=== PATIENT | female | born 1955 | race African-American/Black ===

== ENCOUNTER 2017-01-26 07:57 | Emergency (ER) | payer MEDICARE, MEDICAID ==
[2017-01-26] MEDS ORDERED: ONDANSETRON HCL INJ/PF 4 MG/2 ML SDV IV ONE (09:25)
--- NOTE | 2017-01-26 09:28 | ER Document Report ---
ED Medical Screen (RME) - General Chief Complaint: Abdominal Pain Stated Complaint: VOMITING/DIZZY Mode of Arrival: Ambulatory Information source: Patient Notes: This is a 61-year-old -[place] female with a history of diabetes who presents with a 2 day history of upper abdominal pain nausea and vomiting. She states she has not been tolerating PO. Last attempt at oral intake was last night. She has not had a bowel movement in several days. Previous abdominal surgeries include cholecystectomy. She denies any fevers or chills. Primary care physician is Dr. Swan TRAVEL OUTSIDE OF THE [place] IN LAST 30 DAYS: No - Related Data Allergies/Adverse Reactions: No Known Allergies Allergy (Unverified 06/18/11 08:55) Past Medical History - General Information source: Patient Endocrine Medical History: Reports: Hx Diabetes Mellitus Type 2, Hx Hypothyroidism Renal/ Medical History: Denies: Hx Peritoneal Dialysis GI Medical History: Reports: Hx Hiatal Hernia Past Surgical History: Reports: Hx Cholecystectomy Physical Exam - Vital signs Vitals: Temp Pulse Resp BP Pulse Ox 97.7 F 91 22 H 153/65 H 97 01/26/17 07:59 01/26/17 07:59 01/26/17 07:59 01/26/17 07:59 01/26/17 07:59 Course - Vital Signs Vital signs: Temp Pulse Resp BP Pulse Ox 97.7 F 91 22 H 153/65 H 97 01/26/17 07:59 01/26/17 07:59 01/26/17 07:59 01/26/17 07:59 01/26/17 07:59
[2017-01-26 10:00] LABS: ABSOLUTE LYMPHOCYTES (AUTO) 1.3 10^3/uL (0.5-4.7); ABSOLUTE MONOCYTES (AUTO) 0.4 10^3/uL (0.1-1.4); ABSOLUTE NEUT (AUTO) 9.1 10^3/uL (1.7-8.2); BASOPHILS % (AUTO) 0.4 % (0-2); EOSINOPHILS % (AUTO) 0.2 % (0-6); HEMATOCRIT 36.9 % (36.0-47.0); HGB HCT DIFFERENCE -0.9; LYMPHOCYTES % (AUTO) 12.2 % (13-45); MEAN CORPUSCULAR HEMOGLOBIN 27.4 pg (27.0-33.4); MEAN CORPUSCULAR HGB CONC 32.5 g/dL (32.0-36.0); MEAN CORPUSCULAR VOLUME 84 fl (80-97); MONOCYTES % (AUTO) 4.1 % (3-13); RED BLOOD COUNT 4.37 10^6/uL (3.72-5.28); RED CELL DISTRIBUTION WIDTH 15.4 % (11.5-14.0); SEGMENTED NEUTROPHILS % (AUTO) 83.1 % (42-78)
[2017-01-26 10:15] LABS: ALANINE AMINOTRANSFERASE 29 U/L (9-52); ALBUMIN 3.6 g/dL (3.5-5.0); ALKALINE PHOSPHATASE 169 U/L (38-126); ANION GAP 10 (5-19); ASPARTATE AMINO TRANSFERASE 22 U/L (14-36); BILIRUBIN,DIRECT 0.4 mg/dL (0.0-0.4); BILIRUBIN,TOTAL 0.6 mg/dL (0.2-1.3); BLOOD UREA NITROGEN 8 mg/dL (7-20); CALCIUM 9.9 mg/dL (8.4-10.2); CARBON DIOXIDE 29 mmol/L (22-30); CHLORIDE 102 mmol/L (98-107); GLUCOSE 116 mg/dL (75-110); LIPASE 53.5 U/L (23-300); POTASSIUM 4.8 mmol/L (3.6-5.0); SODIUM 141.4 mmol/L (137-145)
--- NOTE | 2017-01-26 10:37 | ER Document Report ---
ED GI/ - General Chief Complaint: Abdominal Pain Stated Complaint: VOMITING/DIZZY Mode of Arrival: Ambulatory Information source: Patient Notes: 61-year-old female with past medical history as recorded who presents today stating the onset yesterday of some epigastric nonradiating abdominal "pain". She denies any aggravating or relieving factors. She denies any radiation. She states vomiting without diarrhea, dysuria, or fevers. She denies any chest pain or radiation to the chest. Patient states she does have a "very long history" of an epigastric "hernia" but has never been surgically evaluated or operated upon. TRAVEL OUTSIDE OF THE [place] IN LAST 30 DAYS: No - HPI Patient complains to provider of: Abdominal pain Onset: Other - See above Timing/Duration: Gradual Quality of pain: Other - See above Severity at maximum: Mild Severity in ED: Almost gone Pain Level: 1 Context: Other - See above Location: Other - See above Vaginal bleeding (Compared to normal period): None Sexual history: Inactive Associated symptoms: Other - See above Exacerbated by: Denies Relieved by: Denies Similar symptoms previously: Yes Recently seen / treated by doctor: No - Related Data Allergies/Adverse Reactions: No Known Allergies Allergy (Unverified 06/18/11 08:55) Past Medical History - General Information source: Patient - Social History Smoking Status: Unknown if Ever Smoked Chew tobacco use (# tins/day): No Smoking Education Provided: No Frequency of alcohol use: None Family History: Reviewed & Not Pertinent Endocrine Medical History: Reports: Hx Diabetes Mellitus Type 2, Hx Hypothyroidism Renal/ Medical History: Denies: Hx Peritoneal Dialysis GI Medical History: Reports: Hx Hiatal Hernia Past Surgical History: Reports: Hx Cholecystectomy Review of Systems - Review of Systems Constitutional: denies: Fever EENT: denies: Eye discharge, Nose discharge Respiratory: denies: Short of breath Gastrointestinal: Vomiting Genitourinary: denies: Dysuria Musculoskeletal: denies: Leg swelling Skin: Other - no hives. denies: Rash Neurological/Psychological: Other - no slurred speech -: Yes All other systems reviewed and negative Physical Exam - Vital signs Vitals: Temp Pulse Resp BP Pulse Ox 97.7 F 91 22 H 153/65 H 97 01/26/17 07:59 01/26/17 07:59 01/26/17 07:59 01/26/17 07:59 04/26/17 07:59 Notes: Reviewed vital signs and nursing note as charted by RN. CONSTITUTIONAL: Alert and oriented and responds appropriately to questions. Well -appearing; well-nourished HEAD: Normocephalic; atraumatic EYES: Sclerae non-icteric CARD: Regular rate and rhythm; no murmurs, no clicks, no rubs, no gallops; symmetric distal pulses RESP: Normal chest excursion without splinting or tachypnea; breath sounds clear and equal bilaterally; no wheezes, no rhonchi, no rales ABD/GI: Normal bowel sounds; related BMI; nontender to deep palpation in all 4 quadrants of the abdomen. Patient has some pendulous breasts with a yeast infection-type rash underneath each breast. BACK: The back appears normal and is non-tender to palpation, there is no CVA tenderness EXT: Normal ROM in all joints; non-tender to palpation; no cyanosis, no effusions, no edema SKIN: Normal color for age and race; warm; dry; good turgor; capillary refill < 2 seconds; no acute lesions noted NEURO: Moves all extremities equally; Motor and sensory function intact PSYCH: The patient's mood and manner are appropriate. Grooming and personal hygiene are appropriate. Course - Re-evaluation Re-evalutation: 01/26/17 10:37 Given the history and physical examination we will order an EKG, basic labs, abdominal labs, and order a CT scan of the abdomen and pelvis and reassess the patient's abdomen. Patient denies any abdominal pain at this time. Patient's abdomen is distended consistent with BMI but is nontender currently. EKG shows a heart rate of 81, normal sinus rhythm, normal axis, no obvious ST elevation or depression. Poor R wave progression. 01/26/17 11:59 Exam a change. Patient just returning from CT scan. Laboratory values as recorded. Normal liver panel and lipase. 01/26/17 13:10 CT scan as recorded. Ultrasound for this right lower quadrant 6 cm mass has been ordered. 01/26/17 15:35 Ultrasound of the pelvis as recorded. Patient's pain is mostly in the midepigastric region. EKG as recorded. Troponin as recorded. Patient has eaten and drank without difficulty or pain. I have referred the patient to OB/ [facility] for further evaluation of her adnexal mass. I will start the patient on a PPI. - Vital Signs Vital signs: Temp Pulse Resp BP Pulse Ox 97.7 F 91 22 H 153/65 H 97 01/26/17 07:59 01/26/17 07:59 01/26/17 07:59 01/26/17 07:59 01/26/17 07:59 - Laboratory Result Diagrams: 01/26/17 09:40 01/26/17 09:40 Laboratory results interpreted by me: 01/26/17 01/26/17 01/26/17 09:40 09:40 09:40 WBC 11.0 H RDW 15.4 H Seg Neutrophils % 83.1 H Lymphocytes % 12.2 L Absolute Neutrophils 9.1 H Glucose 116 H POC Glucose 111 H Alkaline Phosphatase 169 H Urine Blood 01/26/17 09:40 WBC RDW Seg Neutrophils % Lymphocytes % Absolute Neutrophils Glucose POC Glucose Alkaline Phosphatase Urine Blood SMALL H Discharge - Discharge Clinical Impression: Epigastric abdominal pain, Right lower quadrant abdominal mass Condition: Good Disposition: HOME, SELF-CARE Additional Instructions: Please come back immediately with any return of pain, change in location or quality of pain, fevers or vomiting, or any other acute problems. Please make sure that you follow-up with [facility] as we have discussed about to right lower quadrant abdominal mass. You may also start to take some Prilosec over-the- counter for the epigastric discomfort. Please follow-up with your primary care doctor regarding this. Referrals: HAIM HARPER MD [Primary Care Provider] - Follow up as needed ELMIRA POLANCO MD [ACTIVE STAFF] - Follow up as needed
[2017-01-26 10:48] LABS: APPEARANCE,URINE CLEAR; BILIRUBIN,URINE NEGATIVE (NEGATIVE); GLUCOSE, URINE NEGATIVE (NEGATIVE); KETONES,URINE NEGATIVE (NEGATIVE); LEUKOCYTE ESTERASE,URINE NEGATIVE (NEGATIVE); NITRITE,URINE NEGATIVE (NEGATIVE); PROTEIN,URINE NEGATIVE (NEGATIVE); URINE SPECIFIC GRAVITY 1.004; UROBILINOGEN,URINE NEGATIVE mg/dL (<2.0)
[2017-01-26 16:31] VITALS: BP 132/86
--- NOTE | 2017-01-26 21:16 | EKG REPORT ---
SEVERITY:- ABNORMAL ECG - SINUS RHYTHM PROBABLE INFERIOR INFARCT, AGE INDETERMINATE : Confirmed by: Guy Shore 26-Jan-2017 21:14:49
== END 2017-01-26 16:30 | disposition home or self-care (01) ==
LOC: ER 07:57
DX: R10.13 Epigastric pain (principal); R19.03 Right lower quadrant abdominal swelling, mass and lump; R42 Dizziness and giddiness; E11.9 Type 2 diabetes mellitus without complications; E03.9 Hypothyroidism, unspecified; Z90.49 Acquired absence of other specified parts of digestive tract
CPT/HCPCS: 93005; 99284; 36415; 82962; 83690; 85025; 80053; 81001; 84484; 76857; 93976; 74177; 93010; J2405

== ENCOUNTER 2017-11-24 14:48 | Inpatient (IN) | payer MEDICARE, MEDICAID ==
[2017-11-24 16:50] LABS: HEMATOCRIT 33.2 % (36.0-47.0); HEMOGLOBIN 10.9 g/dL (12.0-15.5); MEAN CORPUSCULAR HEMOGLOBIN 27.6 pg (27.0-33.4); MEAN CORPUSCULAR VOLUME 84 fl (80-97); PLATELET COUNT 358 10^3/uL (150-450); RED BLOOD COUNT 3.97 10^6/uL (3.72-5.28); RED CELL DISTRIBUTION WIDTH 15.3 % (11.5-14.0); WHITE BLOOD COUNT 10.9 10^3/uL (4.0-10.5)
[2017-11-24 17:16] LABS: ANION GAP 9 (5-19); BLOOD UREA NITROGEN 4 mg/dL (7-20); CALCIUM 9.8 mg/dL (8.4-10.2); CARBON DIOXIDE 29 mmol/L (22-30); CHLORIDE 101 mmol/L (98-107); GLUCOSE 128 mg/dL (75-110); SODIUM 138.8 mmol/L (137-145)
[2017-11-24] MEDS ORDERED: NORMAL SALINE 1000 ML 1,000 ML IV ONE (18:49)
[2017-11-24] MEDS ORDERED: NORMAL SALINE 1000 ML 1,000 ML IV PRN (18:49)
--- NOTE | 2017-11-24 18:49 | PDOC CONSULTATION ---
Consultation Consult Date: 11/24/17 Consult reason:: multiple abscesses History of Present Illness Admission Date/PCP: 11/24/17 14:48 History of Present Illness: MCKENZIE SZYMANSKI is a 62 year old female obese, with diabetes admitted for multiple abscesses (left breast, left inner thigh, and right axilla). She denies any other medical issues. Past Medical History Medical History: Other - obesity, diabetes Endocrine Medical History: Reports: Diabetes Mellitus Type 2, Hypothyroidism GI Medical History: Reports: Hiatal Hernia Past Surgical History Past Surgical History: Reports: Cholecystectomy Social History Lives with: Alone Smoking Status: Current Every Day Smoker Number of Years Smokin Last Time Smoked: T Frequency of Alcohol Use: Rare Hx Recreational Drug Use: No Drugs: None Hx Prescription Drug Abuse: No Family History Family History: Reviewed & Not Pertinent, Other - diabetes Parental Family History Reviewed: Yes Children Family History Reviewed: Yes Sibling(s) Family History Reviewed.: Yes Medication/Allergy Allergies/Adverse Reactions: No Known Allergies Allergy (Verified 11/24/17 14:33) Physical Exam Vital Signs: Temp Pulse Resp BP Pulse Ox 97.8 F 94 20 142/71 H 100 11/24/17 15:39 11/24/17 15:39 11/24/17 15:39 11/24/17 15:39 11/24/17 15:39 Intake & Output 11/23/17 11/24/17 11/25/17 06:59 06:59 06:59 Weight 145.8 kg General appearance: PRESENT: mild distress Mouth exam: PRESENT: dry mucosa Neck exam: PRESENT: full ROM Respiratory exam: PRESENT: clear to auscultation tawanda Cardiovascular exam: PRESENT: RRR GI/Abdominal exam: PRESENT: soft - large pannus Extremities exam: PRESENT: full ROM Results Laboratory Results: 11/24/17 16:30 11/24/17 16:30 11/24/17 11/24/17 16:30 16:30 WBC 10.9 H RBC 3.97 Hgb 10.9 L Hct 33.2 L MCV 84 MCH 27.6 MCHC 33.0 RDW 15.3 H Plt Count 358 Sodium 138.8 Potassium 4.0 Chloride 101 Carbon Dioxide 29 Anion Gap 9 BUN 4 L Creatinine 0.53 Est GFR ( Amer) > 60 Est GFR (Non-Af Amer) > 60 Glucose 128 H Calcium 9.8 Assessment & Plan - Plan Summary Plan Summary: A/ Morbid obesity Multiple skin abscesses : left breast and inner thigh, right axilla diabetes P/ NPO after midnight consent for I&D abscesses of left breast, left inner thigh, and right axilla Start Zosyn 3.375. gr q6 IVF
[2017-11-24] MEDS ORDERED: DEXTROSE 50%-WATER 25 GM/50 ML DISP.SYRIN IV PRN ×2 (18:51)
[2017-11-24] MEDS ORDERED: GLUCAGON,HUMAN RECOMB 1 MG INJ SUBCUT PRN (18:51)
[2017-11-24] MEDS ORDERED: DEXTROSE 40% GEL 15 GM TUBE PO PRN ×2 (18:51)
[2017-11-24] MEDS ORDERED: PIPERACILLIN/TAZOBACTAM 3.375 GM VIAL IV SCH (21:00)
[2017-11-24] MEDS: PIPERACILLIN SODIUM/TAZOBACTAM 3.375 GM in NORMAL SALINE 100 ML IV SCH (21:01)
--- NOTE | 2017-11-24 21:35 | PDOC H&P ---
History of Present Illness Admission Date/PCP: 11/24/17 14:48 History of Present Illness: 62-year-old morbidly obese female, with impaired fasting blood glucose she came to the office today for evaluation of multiple abscesses involving the left inner thigh, the buttock, the right axilla and the left breast. She was admitted directly from the office to the hospital for evaluation. She is morbidly obese, in the office she was evaluated, she has abscesses involving many body parts Past Medical History Endocrine Medical History: Reports: Hypothyroidism, Obesity GI Medical History: Reports: Hiatal Hernia Past Surgical History Past Surgical History: Reports: Cholecystectomy Social History Lives with: Alone Smoking Status: Current Every Day Smoker Cigarettes Packs Per Day: 1 Number of Years Smokin Last Time Smoked: T Frequency of Alcohol Use: Rare Hx Recreational Drug Use: No Drugs: None Hx Prescription Drug Abuse: No Family History Family History: Reviewed & Not Pertinent, Other - diabetes Parental Family History Reviewed: Yes Children Family History Reviewed: Yes Sibling(s) Family History Reviewed.: Yes Medication/Allergy Home Medications: Mineral Oil/Petrolatum,White [Absorbase Ointment] 1 applic TOP DAILY 11/24/17 Nystatin [Mycostatin Topical Powder 15 gm] 1 applic TOP BID 11/24/17 Allergies/Adverse Reactions: No Known Allergies Allergy (Verified 11/24/17 14:33) Review of Systems Constitutional: ABSENT: chills, fever(s), headache(s), weight gain, weight loss Eyes: ABSENT: visual disturbances Ears: ABSENT: hearing changes Cardiovascular: ABSENT: chest pain, dyspnea on exertion, edema, orthropnea, palpitations Respiratory: ABSENT: cough, hemoptysis Gastrointestinal: ABSENT: abdominal pain, constipation, diarrhea, hematemesis, hematochezia, nausea, vomiting Genitourinary: ABSENT: dysuria, hematuria Musculoskeletal: ABSENT: joint swelling Integumentary: ABSENT: rash, wounds Neurological: ABSENT: abnormal gait, abnormal speech, confusion, dizziness, focal weakness, syncope Psychiatric: ABSENT: anxiety, depression, homidical ideation, suicidal ideation Endocrine: ABSENT: cold intolerance, heat intolerance, menstrual abnormalities, polydipsia, polyuria Hematologic/Lymphatic: ABSENT: easy bleeding, easy bruising, lymphadenopathy Physical Exam Vital Signs: Temp Pulse Resp BP Pulse Ox 97.8 F 94 20 142/71 H 100 11/24/17 15:39 11/24/17 15:39 11/24/17 15:39 11/24/17 15:39 11/24/17 15:39 Intake & Output 11/23/17 11/24/17 11/25/17 06:59 06:59 06:59 Weight 145.8 kg General appearance: PRESENT: morbidly obese Head exam: PRESENT: atraumatic, normocephalic Eye exam: PRESENT: conjunctiva pink, EOMI, PERRLA Ear exam: PRESENT: normal external ear exam Mouth exam: PRESENT: moist, tongue midline Neck exam: PRESENT: full ROM Cardiovascular exam: PRESENT: +S1, +S2 Pulses: PRESENT: normal dorsalis pedis pul, +2 pedal pulses bilateral Vascular exam: PRESENT: normal capillary refill GI/Abdominal exam: PRESENT: normal bowel sounds, soft Rectal exam: PRESENT: deferred Neurological exam: PRESENT: alert, CN II-XII grossly intact Psychiatric exam: PRESENT: appropriate affect, normal mood Skin exam: PRESENT: other - Abscess involving the left thigh, right axilla and left breast Results Laboratory Results: 11/24/17 16:30 11/24/17 16:30 11/24/17 11/24/17 16:30 16:30 WBC 10.9 H RBC 3.97 Hgb 10.9 L Hct 33.2 L MCV 84 MCH 27.6 MCHC 33.0 RDW 15.3 H Plt Count 358 Sodium 138.8 Potassium 4.0 Chloride 101 Carbon Dioxide 29 Anion Gap 9 BUN 4 L Creatinine 0.53 Est GFR ( Amer) > 60 Est GFR (Non-Af Amer) > 60 Glucose 128 H Calcium 9.8 Assessment & Plan - Diagnosis (1) Abscess of multiple sites Is this a current diagnosis for this admission?: Yes Plan: She has abscess in multiple body parts including left inner thigh, right axilla , left breast, start IV antibiotic, obtain consultation from surgery for I&D (2) Morbid obesity Is this a current diagnosis for this admission?: Yes (3) Hidradenitis suppurativa of right axilla Is this a current diagnosis for this admission?: Yes
[2017-11-25] MEDS: PIPERACILLIN SODIUM/TAZOBACTAM 3.375 GM in NORMAL SALINE 100 ML IV SCH ×4 (02:09→21:48)
--- NOTE | 2017-11-25 08:02 | EKG REPORT ---
SEVERITY:- ABNORMAL ECG - SINUS RHYTHM PROBABLE INFERIOR INFARCT, OLD CONSIDER ANTERIOR INFARCT : Confirmed by: Everett Estes MD 25-Nov-2017 08:01:29
[2017-11-25] MEDS ORDERED: ALBUTEROL SULFATE 0.083% NEB 2.5 MG/3 ML AMPUL NEB ONE (09:00)
[2017-11-25] MEDS ORDERED: FENTANYL CITRATE INJ/PF 100 MCG/2 ML AMPUL ONE (13:40)
[2017-11-25] MEDS ORDERED: MIDAZOLAM 2 MG/2 ML INJ ONE (13:41)
[2017-11-25] MEDS ORDERED: EPHEDRINE SULFATE INJ 50 MG/1 ML AMPULE ONE (13:41)
[2017-11-25] MEDS ORDERED: ACETAMINOPHEN 0 ML IV ONE (13:42)
[2017-11-25] MEDS ORDERED: PROPOFOL INJ 200 MG/20 ML VIAL IV ONE (13:42)
[2017-11-25] MEDS ORDERED: HYDROMORPHONE HCL INJ/PF 2 MG/ML AMPULE ONE (13:42)
[2017-11-25] MEDS ORDERED: BUPIVACAINE HCL 0.25 % INJ/PF (2.5 MG/1 ML) 30 ML VIAL ONE (13:44)
[2017-11-25] MEDS ORDERED: LIDOCAINE 0.5% INJ-PF (5 MG/ML) 50 ML SDV ONE (13:44)
[2017-11-25] MEDS ORDERED: DIPHENHYDRAMINE HCL 50 MG/ML VIAL IV PRN (14:19)
[2017-11-25] MEDS ORDERED: ONDANSETRON HCL INJ/PF 4 MG/2 ML SDV IV PRN (14:19)
[2017-11-25] MEDS ORDERED: PROMETHAZINE HCL INJ 25 MG/1 ML VIAL IV PRN (14:19)
--- NOTE | 2017-11-25 14:28 | Operative Report ---
Operative Report DATE OF SURGERY: 11/25/17 PREOPERATIVE DIAGNOSIS: Multiple abscesses right axilla, left breast, left groin POSTOPERATIVE DIAGNOSIS: Hidradenitis suppurativa with abscesses OPERATION: Excisional debridement, irrigation, and packing of multiple abscesses including right axilla, left inframammary breast crease, and left groin SURGEON: KEE NGUYEN ANESTHESIA: LMAC TISSUE REMOVED OR ALTERED: SQ, skin, pus COMPLICATIONS: none ESTIMATED BLOOD LOSS: minimal INTRAOPERATIVE FINDINGS: See below PROCEDURE: Patient was taken to the operating room where LMAC anesthesia was induced. The right axilla, left breast, left groin were exposed. Specifically the left proximal thigh inferior to the groin. All 3 areas had abscesses consistent with hidradenitis suppurativa. All 3 areas were prepped with Betadine Surgical plan and surgical timeout were conducted. All 3 abscesses were anesthetized 1% plain lidocaine. All 3 lesions were excised using a 10 blade. In elliptical fashion removing skin and subcutaneous tissue and pus. The right axillary wound was approximately 3 x 5 cm, and 2 cm deep. Bleeders were cauterized as encountered. This was a manifestation of abscess secondary to hidradenitis suppurativa. Ellipses of skin 2 x 3 cm for the left breast and 2 x 3 cm for the left groin were submitted to pathology. All wounds were irrigated and packed with iodoform packing Similar abscesses were removed from the left inframammary fold, and the left proximal inner thigh. Wounds were irrigated, cultured and packed. Patient tolerated procedure well.
--- NOTE | 2017-11-25 22:16 | PDOC PROGRESS REPORT ---
Subjective Progress Note for:: 11/25/17 Subjective:: She was admitted yesterday she underwent I&D Reason For Visit: GLUTEAL ABSCESS,MORBID OBESITY Physical Exam Vital Signs: Temp Pulse Resp BP Pulse Ox 97.9 F 80 22 H 102/74 93 11/25/17 19:00 11/25/17 19:00 11/25/17 19:00 11/25/17 19:00 11/25/17 19:00 Intake & Output 11/24/17 11/25/17 11/26/17 06:59 06:59 06:59 Intake Total 2650 6870 Output Total 200 225 Balance 2450 6645 Weight 145.8 kg 145.8 kg General appearance: PRESENT: no acute distress Eye exam: PRESENT: PERRLA Respiratory exam: PRESENT: clear to auscultation tawanda Cardiovascular exam: PRESENT: +S1, +S2 GI/Abdominal exam: PRESENT: soft Neurological exam: PRESENT: alert, CN II-XII grossly intact Results Laboratory Results: 11/24/17 16:30 11/24/17 16:30 Assessment & Plan - Diagnosis (1) Abscess of multiple sites Is this a current diagnosis for this admission?: Yes (2) Morbid obesity Is this a current diagnosis for this admission?: Yes (3) Hidradenitis suppurativa of right axilla Is this a current diagnosis for this admission?: Yes - Plan Summary Plan Summary: Continue IV antibiotic
[2017-11-25] MEDS: NORMAL SALINE IV SCH (22:57)
[2017-11-25] MEDS: CLINDAMYCIN PHOSPHATE IV SCH (22:57)
[2017-11-25] MEDS: OXYCODONE-ACETAMINOPHEN 5-325 MG TABLET PO PRN (23:49)
[2017-11-26] MEDS: PIPERACILLIN SODIUM/TAZOBACTAM 3.375 GM in NORMAL SALINE 100 ML IV SCH ×2 (03:12→09:15)
[2017-11-26] MEDS: OXYCODONE-ACETAMINOPHEN 5-325 MG TABLET PO PRN (04:52)
[2017-11-26] MEDS: NORMAL SALINE IV SCH (04:54)
[2017-11-26] MEDS: CLINDAMYCIN PHOSPHATE IV SCH (04:54)
[2017-11-26 09:14] LABS: APPEARANCE,URINE CLOUDY; BILIRUBIN,URINE NEGATIVE (NEGATIVE); COLOR,URINE YELLOW; GLUCOSE, URINE NEGATIVE (NEGATIVE); KETONES,URINE NEGATIVE (NEGATIVE); LEUKOCYTE ESTERASE,URINE LARGE (NEGATIVE); NITRITE,URINE NEGATIVE (NEGATIVE); PROTEIN,URINE 30 mg/dL (NEGATIVE); URINE SPECIFIC GRAVITY 1.006; UROBILINOGEN,URINE NEGATIVE mg/dL (<2.0)
[2017-11-26] MEDS: CLINDAMYCIN 600 MG/D5W RTU 600 MG/50 ML RTUPB IV SCH ×2 (13:34→22:47)
--- NOTE | 2017-11-26 21:15 | PDOC PROGRESS REPORT ---
Subjective Progress Note for:: 11/26/17 Subjective:: She was seen by the bedside, still on IV antibiotic hopefully discharge home in a.m. Reason For Visit: GLUTEAL ABSCESS,MORBID OBESITY Physical Exam Vital Signs: Temp Pulse Resp BP Pulse Ox 98.2 F 102 H 18 158/85 H 91 L 11/26/17 19:22 11/26/17 19:22 11/26/17 19:22 11/26/17 19:22 11/26/17 19:22 Intake & Output 11/25/17 11/26/17 11/27/17 06:59 06:59 06:59 Intake Total 2650 9320 1979 Output Total 200 225 Balance 2450 9095 1979 Weight 145.8 kg 145.8 kg General appearance: PRESENT: morbidly obese Head exam: PRESENT: atraumatic, normocephalic Ear exam: PRESENT: normal external ear exam Mouth exam: PRESENT: moist, tongue midline Neck exam: PRESENT: full ROM Respiratory exam: PRESENT: clear to auscultation tawanda Cardiovascular exam: PRESENT: RRR, +S1, +S2 Vascular exam: PRESENT: normal capillary refill GI/Abdominal exam: PRESENT: normal bowel sounds, soft Rectal exam: PRESENT: deferred Neurological exam: PRESENT: alert Psychiatric exam: PRESENT: appropriate affect, normal mood Skin exam: PRESENT: dry, intact, warm. ABSENT: cyanosis, rash Results Laboratory Results: 11/24/17 16:30 11/24/17 16:30 11/26/17 09:02 Urine Color YELLOW Urine Appearance CLOUDY Urine pH 5.0 Ur Specific [place] 1.006 Urine Protein 30 H Urine Glucose (UA) NEGATIVE Urine Ketones NEGATIVE Urine Blood LARGE H Urine Nitrite NEGATIVE Ur Leukocyte Esterase LARGE H Urine WBC (Auto) 20 Urine RBC (Auto) 9 Assessment & Plan - Diagnosis (1) Abscess of multiple sites Is this a current diagnosis for this admission?: Yes (2) Morbid obesity Is this a current diagnosis for this admission?: Yes (3) Hidradenitis suppurativa of right axilla Is this a current diagnosis for this admission?: Yes
[2017-11-27] MEDS: OXYCODONE-ACETAMINOPHEN 5-325 MG TABLET PO PRN ×2 (04:23→15:24)
[2017-11-27] MEDS: CLINDAMYCIN 600 MG/D5W RTU 600 MG/50 ML RTUPB IV SCH ×3 (05:19→21:09)
--- NOTE | 2017-11-27 14:43 | PDOC PROGRESS REPORT ---
Subjective Progress Note for:: 11/27/17 Subjective:: Seen by the bedside on IV antibiotic Reason For Visit: GLUTEAL ABSCESS,MORBID OBESITY Physical Exam Vital Signs: Temp Pulse Resp BP Pulse Ox 97.7 F 88 20 152/86 H 95 11/27/17 11:16 11/27/17 11:16 11/27/17 11:16 11/27/17 11:16 11/27/17 11:16 Intake & Output 11/26/17 11/27/17 11/28/17 06:59 06:59 06:59 Intake Total 9320 2540 810 Output Total 225 1600 Balance 9095 940 810 Weight 145.8 kg General appearance: PRESENT: no acute distress Eye exam: PRESENT: PERRLA Respiratory exam: PRESENT: clear to auscultation tawanda Cardiovascular exam: PRESENT: +S1, +S2 GI/Abdominal exam: PRESENT: soft Neurological exam: PRESENT: alert Results Laboratory Results: 11/24/17 16:30 11/24/17 16:30 Assessment & Plan - Diagnosis (1) Abscess of multiple sites Is this a current diagnosis for this admission?: Yes (2) Morbid obesity Is this a current diagnosis for this admission?: Yes (3) Hidradenitis suppurativa of right axilla Is this a current diagnosis for this admission?: Yes
[2017-11-28] MEDS: CLINDAMYCIN 600 MG/D5W RTU 600 MG/50 ML RTUPB IV SCH ×3 (05:42→21:44)
[2017-11-28] MEDS: OXYCODONE-ACETAMINOPHEN 5-325 MG TABLET PO PRN (08:18)
--- NOTE | 2017-11-28 21:56 | PDOC PROGRESS REPORT ---
Subjective Progress Note for:: 11/28/17 Subjective:: Patient is alert, she was admitted for the management of multiple skin abscess, on IV antibiotic, will transition to p.o. antibiotic and discharge in 1 or 2 days Reason For Visit: GLUTEAL ABSCESS,MORBID OBESITY Physical Exam Vital Signs: Temp Pulse Resp BP Pulse Ox 97.3 F 81 18 153/64 H 100 11/28/17 11:16 11/28/17 11:16 11/28/17 11:16 11/28/17 11:16 11/28/17 11:16 Intake & Output 11/27/17 11/28/17 11/29/17 06:59 06:59 06:59 Intake Total 2540 1432 981 Output Total 1600 2 Balance 940 1430 981 Weight 142.6 kg General appearance: PRESENT: no acute distress Eye exam: PRESENT: PERRLA Respiratory exam: PRESENT: clear to auscultation tawanda Cardiovascular exam: PRESENT: +S1, +S2 GI/Abdominal exam: PRESENT: soft Neurological exam: PRESENT: alert Results Laboratory Results: 11/24/17 16:30 11/24/17 16:30 11/25/17 14:12 Axilla - Right Gram Stain - Final 11/25/17 14:12 Axilla - Right Wound Culture - Final Corynebacterium Species Peptostreptococcus Species 11/26/17 09:02 Clean Catch Midstream Urine Culture - Final NO GROWTH 2 DAYS Assessment & Plan - Diagnosis (1) Abscess of multiple sites Is this a current diagnosis for this admission?: Yes (2) Morbid obesity Is this a current diagnosis for this admission?: Yes (3) Hidradenitis suppurativa of right axilla Is this a current diagnosis for this admission?: Yes
[2017-11-29] MEDS: CLINDAMYCIN 600 MG/D5W RTU 600 MG/50 ML RTUPB IV SCH ×2 (06:09→16:05)
[2017-11-29] MEDS: OXYCODONE-ACETAMINOPHEN 5-325 MG TABLET PO PRN ×2 (06:09→16:06)
--- NOTE | 2017-11-29 19:38 | PDOC PROGRESS REPORT ---
Subjective Progress Note for:: 11/29/17 Subjective:: Patient is alert, she was admitted for the management of multiple skin abscess, on IV antibiotic, will transition to p.o. antibiotic and discharge in 1 or 2 days Reason For Visit: GLUTEAL ABSCESS,MORBID OBESITY Physical Exam Vital Signs: Temp Pulse Resp BP Pulse Ox 97.4 F 74 20 148/76 H 100 11/29/17 11:50 11/29/17 11:50 11/29/17 11:50 11/29/17 11:50 11/29/17 11:50 Intake & Output 11/28/17 11/29/17 11/30/17 06:59 06:59 06:59 Intake Total 1432 3331 Output Total 2 900 Balance 1430 2431 Weight 142.6 kg General appearance: PRESENT: no acute distress, well-developed, well-nourished Head exam: PRESENT: atraumatic, normocephalic Eye exam: PRESENT: conjunctiva pink, EOMI, PERRLA Ear exam: PRESENT: normal external ear exam Mouth exam: PRESENT: moist, tongue midline Neck exam: PRESENT: full ROM Cardiovascular exam: PRESENT: RRR, +S1, +S2 Vascular exam: PRESENT: normal capillary refill GI/Abdominal exam: PRESENT: normal bowel sounds, soft Rectal exam: PRESENT: deferred Neurological exam: PRESENT: alert Skin exam: PRESENT: dry, intact, warm Results Laboratory Results: 11/24/17 16:30 11/24/17 16:30 11/24/17 16:30 Blood Blood Culture - Final NO GROWTH IN 5 DAYS 11/24/17 15:50 Blood Blood Culture - Final NO GROWTH IN 5 DAYS 11/25/17 14:12 Axilla - Right Gram Stain - Final 11/25/17 14:12 Axilla - Right Wound Culture - Final Corynebacterium Species Peptostreptococcus Species Assessment & Plan - Diagnosis (1) Abscess of multiple sites Is this a current diagnosis for this admission?: Yes (2) Morbid obesity Is this a current diagnosis for this admission?: Yes (3) Hidradenitis suppurativa of right axilla Is this a current diagnosis for this admission?: Yes - Plan Summary Plan Summary: Continue antibiotic
[2017-11-29] MEDS: CLINDAMYCIN HCL 150 MG CAPSULE PO SCH (21:57)
[2017-11-30] MEDS: CLINDAMYCIN HCL 150 MG CAPSULE PO SCH ×2 (05:55→15:50)
[2017-11-30] MEDS: OXYCODONE-ACETAMINOPHEN 5-325 MG TABLET PO PRN (05:55)
--- NOTE | 2017-11-30 15:20 | PDOC DISCHARGE SUMMARY ---
General - Admit/Disc Date/PCP Admission Date/Primary Care Provider: 11/24/17 14:48 Discharge Date: 11/30/17 - Discharge Diagnosis (1) Abscess of multiple sites Is this a current diagnosis for this admission?: Yes (2) Morbid obesity Is this a current diagnosis for this admission?: Yes (3) Hidradenitis suppurativa of right axilla Is this a current diagnosis for this admission?: Yes - Additional Information Resuscitation Status: Full Code Discharge Diet: Regular Discharge Activity: Activity As Tolerated Prescriptions: Clindamycin HCl [Cleocin 150 mg Capsule] 300 mg PO Q8 #21 capsule Home Medications: Mineral Oil/Petrolatum,White [Absorbase Ointment] 1 applic TOP DAILY 11/24/17 Nystatin [Mycostatin Topical Powder 15 gm] 1 applic TOP BID 11/24/17 Clindamycin HCl [Cleocin 150 mg Capsule] 300 mg PO Q8 #21 capsule 11/30/17 History of Present Illness History of Present Illness: 62-year-old morbidly obese female, with impaired fasting blood glucose she came to the office today for evaluation of multiple abscesses involving the left inner thigh, the buttock, the right axilla and the left breast. She was admitted directly from the office to the hospital for evaluation. She is morbidly obese, in the office she was evaluated, she has abscesses involving many body parts Hospital Course Hospital Course: She was admitted for the management of multiple skin abscess affecting the right axilla the left submammary area and the groin. She was seen in consultation by the surgeon she underwent incision and drainage of the abscesses , she was treated with IV antibiotic clindamycin and now transitioned to p.o. Physical Exam Vital Signs: Temp Pulse Resp BP Pulse Ox 97.8 F 80 18 140/62 H 100 11/30/17 12:00 11/30/17 12:00 11/30/17 12:00 11/30/17 12:00 11/30/17 12:00 Intake & Output 11/29/17 11/30/17 12/01/17 06:59 06:59 06:59 Intake Total 3331 2950 828 Output Total 900 2020 Balance 2431 930 828 General appearance: PRESENT: morbidly obese Eye exam: PRESENT: PERRLA Neck exam: PRESENT: full ROM Respiratory exam: PRESENT: clear to auscultation tawanda Cardiovascular exam: PRESENT: RRR, +S1, +S2 Vascular exam: PRESENT: normal capillary refill GI/Abdominal exam: PRESENT: normal bowel sounds, soft Rectal exam: PRESENT: deferred Neurological exam: PRESENT: alert Psychiatric exam: PRESENT: appropriate affect, normal mood Skin exam: PRESENT: dry, intact, warm Results Laboratory Results: 11/24/17 16:30 11/24/17 16:30 11/24/17 16:30 Blood Blood Culture - Final NO GROWTH IN 5 DAYS 11/24/17 15:50 Blood Blood Culture - Final NO GROWTH IN 5 DAYS Qualifiers - * PATEINT BEING DISCHARGED WITH ANY OF THE FOLLOWING DIAGNOSIS?: No VTE patient discharged on overlapping Therapy?: No
[2017-11-30 16:44] VITALS: BP 149/66
== END 2017-11-30 18:00 | disposition home health service (06) | DRG 571 ==
LOC: 4S 14:48
PROVIDERS: ADMIT Internal Medicine; ATTEND Internal Medicine
PROC: 0JBD0ZZ Excision of Right Upper Arm Subcutaneous Tissue and Fascia, Open Approach (ICD-10-PCS; 2017-11-25)
PROC: 0JBM0ZZ Excision of Left Upper Leg Subcutaneous Tissue and Fascia, Open Approach (ICD-10-PCS; 2017-11-25)
PROC: 3E0F73Z Introduction of Anti-inflammatory into Respiratory Tract, Via Natural or Artificial Opening (ICD-10-PCS; 2017-11-25)
PROC: 0JB60ZZ Excision of Chest Subcutaneous Tissue and Fascia, Open Approach (ICD-10-PCS; principal; 2017-11-25 13:00)
DX: L02.31 Cutaneous abscess of buttock (principal); Z68.43 Body mass index [BMI] 50.0-59.9, adult; L02.416 Cutaneous abscess of left lower limb; E66.01 Morbid (severe) obesity due to excess calories; L73.2 Hidradenitis suppurativa; N61.1 Abscess of the breast and nipple; E11.9 Type 2 diabetes mellitus without complications; E03.9 Hypothyroidism, unspecified; F17.210 Nicotine dependence, cigarettes, uncomplicated; K44.9 Diaphragmatic hernia without obstruction or gangrene; Z90.49 Acquired absence of other specified parts of digestive tract; Z60.2 Problems related to living alone; Z83.3 Family history of diabetes mellitus
CPT/HCPCS: 36415; 400; 80048; 81001; 82962; 83036; 85027; 87040; 87070; 87075; 87077; 87086; 87205; 93005; 93010; 94640; A6266; J0131; J1170; J2250; J2543; J2704; J3010; J3490; J7030

== ENCOUNTER → 2018-05-05 | Outpatient (CLI) | payer MEDICARE, MEDICAID | LOC: WI 08:00 | PROVIDERS: ATTEND Internal Medicine | DX: Z12.31 Encounter for screening mammogram for malignant neoplasm of breast (principal); Z53.09 Procedure and treatment not carried out because of other contraindication ==

== ENCOUNTER → 2018-07-31 | Outpatient (CLI) | payer MEDICARE, MEDICAID ==
--- NOTE | 2018-07-31 15:26 | RADIOLOGY REPORT (SQ) ---
EXAM DESCRIPTION: U/S THYROID/SFT TISS HD NECK COMPLETED DATE/TIME: 07/31/2018 2:26 pm REASON FOR STUDY: E04.9 NONTOXIC GOITER, UNSPECIFIED E04.9 NONTOXIC GOITER, UNSPECIFIED COMPARISON: None. TECHNIQUE: Dynamic and static olivera-scale images acquired of the thyroid gland. Selected additional c olor/power Doppler images recorded. All images stored to PACS. LIMITATIONS: None. FINDINGS: RIGHT LOBE: The right lobe measures 6.1 x 2.9 x 2 cm. The gland is heterogeneous in echot exture. There is a dominant 2.3 x 2.2 x 1.5 cm nodule. LEFT LOBE: The left lobe measures 6.1 x 3.4 x 2.8 cm. The gland is heterogeneous in echotexture. Th ere is a dominant 3.0 x 2.0 x 1.8 cm nodule. ISTHMUS: Normal size. Heterogeneous echotexture. No cystic or solid masses. OTHER: No other significant finding. IMPRESSION: Heterogeneous echotexture throughout with dominant nodules in both the right and left lo bes as described. Further evaluation with biopsy is recommended. TECHNICAL DOCUMENTATION: JOB ID: [id number] [email or web address]- All Rights Reserved Reading location - IP/workstation name: [email or web address]
== END ==
LOC: RAD 14:59
PROVIDERS: ATTEND Internal Medicine
DX: E04.9 Nontoxic goiter, unspecified (principal)
CPT/HCPCS: 76536

== ENCOUNTER 2018-08-13 09:46 | Emergency (ER) | payer MEDICARE, MEDICAID ==
[2018-08-13 10:01] VITALS: BP 134/100
--- NOTE | 2018-08-13 10:47 | ER Document Report ---
ED Skin Rash/Insect Bite/Abscs - General Chief Complaint: Abscess Stated Complaint: ABSCESS Time Seen by Provider: 08/13/18 10:28 Mode of Arrival: Ambulatory Information source: Patient Notes: Patient is a 63-year-old female morbidly obese comes emergency room complaining of abscesses on her arms. Patient states she has a history of these for dating back to 2008. She states that back in November she came in here and had several I&D including one on the anterior chest put on antibiotics and they went away. She returns today because of the ones in her arms are starting to hurt her again. Is been going on for several weeks and she is just decided that they needed to be fixed. Patient sees Dr. Montez on a regular basis and forgets to mention to him about these things. Patient denies any history of diabetes but has just been diagnosed with hypertension. She also informed me that she is supposed to have an upper EGD done on the of this month. She denies any fevers and states that these abscesses are draining. She denies doing any shaving under the arm since she was a young woman. She does not know how she gets these on a continuous basis. TRAVEL OUTSIDE OF THE [place] IN LAST 30 DAYS: No - HPI Patient complains to provider of: Skin rash/lesion Onset: Other - Unknown Onset/Duration: Gradual, Persistent Quality of pain: Pressure, Sharp, Throbbing Severity: Moderate - CT do we get a reading on it and Pain Level: 2 Skin Character: Abscess Skin Temperature: Warm Quality of rash: Painful Identify cause: No - Probable folliculitis that is gotten out of hand. Exacerbated by: Movement Relieved by: Denies Similar symptoms previously: Yes Recently seen / treated by doctor: No - Related Data Allergies/Adverse Reactions: No Known Allergies Allergy (Verified 08/13/18 09:55) Past Medical History - General Information source: Patient - Social History Smoking Status: Never Smoker Cigarette use (# per day): No Chew tobacco use (# tins/day): No Smoking Education Provided: No Family History: Reviewed & Not Pertinent, Other Patient has suicidal ideation: No Patient has homicidal ideation: No - Past Medical History Cardiac Medical History: Reports: Hx Hypertension Endocrine Medical History: Reports: Hx Diabetes Mellitus Type 2, Hx Hypothyroidism Renal/ Medical History: Denies: Hx Peritoneal Dialysis GI Medical History: Reports: Hx Hiatal Hernia Past Surgical History: Reports: Hx Cholecystectomy Review of Systems - Review of Systems Constitutional: No symptoms reported EENT: No symptoms reported Cardiovascular: No symptoms reported Respiratory: No symptoms reported Gastrointestinal: No symptoms reported Genitourinary: No symptoms reported Female Genitourinary: No symptoms reported Musculoskeletal: No symptoms reported Skin: Lumps, Other - Abscess Hematologic/Lymphatic: No symptoms reported Neurological/Psychological: No symptoms reported -: Yes All other systems reviewed and negative Physical Exam - Vital signs Vitals: Temp Pulse Resp BP Pulse Ox 97.8 F 87 20 134/100 H 96 08/13/18 09:59 08/13/18 09:59 08/13/18 09:59 08/13/18 09:59 08/13/18 09:59 Interpretation: Hypertensive - Notes Notes: PHYSICAL EXAMINATION: GENERAL: Well-appearing, well-nourished and in no acute distress. Morbidly obese female 63 years of age. HEAD: Atraumatic, normocephalic. EYES: Pupils equal round and reactive to light, extraocular movements intact, conjunctiva are normal. ENT: Nares patent, oropharynx clear without exudates. Moist mucous membranes. NECK: Normal range of motion, supple without lymphadenopathy LUNGS: Breath sounds clear to auscultation bilaterally and equal. No wheezes rales or rhonchi. HEART: Regular rate and rhythm without murmurs ABDOMEN: Soft, nontender, nondistended abdomen. No guarding, no rebound. No masses appreciated. Female : deferred Musculoskeletal: Normal range of motion, no pitting or edema. No cyanosis. NEUROLOGICAL: Cranial nerves grossly intact. Normal speech, normal gait. Normal sensory, motor exams PSYCH: Normal mood, normal affect. SKIN: Warm, Dry, normal turgor, no rashes or lesions noted. Examination of patient's bilateral axilla shows that she has multiple small pustules under both axilla. These pustules seem to be coming off of of scar tissue from underneath. There is no fluctuance that can be felt in the axilla itself under these abscessed pustules. It appears that she is got areas of folliculitis that have started to form pustules. There are multitude of them that are oozing some small amounts of pus with pressure applied. Course - Re-evaluation Re-evalutation: 08/13/18 10:50 After the examination and found no areas that could be I&D at least nothing it was substantial enough. At this point I believe oral antibiotics are the rope to start with. This will at least get to the pustules that are on the surface area under control. I have informed patient to use warm moist compresses under her arms often throughout the day. I have also instructed her to follow-up with Dr. Montez so he can be informed about these areas that may need more attention than what you are can give later on down the line. Again there is nothing to I&D that is fluctuant enough to get any substantial amount of return. I think we be doing more harm than good if we went in and try to do this. Patient is very open to this suggestion and will start with clindamycin and Keflex. - Vital Signs Vital signs: Temp Pulse Resp BP Pulse Ox 97.8 F 87 20 134/100 H 96 08/13/18 09:59 08/13/18 09:59 08/13/18 09:59 08/13/18 09:59 08/13/18 09:59 Discharge - Discharge Clinical Impression: Folliculitis, Abscess Condition: Stable Disposition: HOME, SELF-CARE Instructions: Abscess ([facility]), Cephalexin ([facility]), Folliculitis ([facility]), MRSA Cellulitis ([facility]), Oral Narcotic Medication ([facility]), Clindamycin ([facility]) Additional Instructions: As we discussed these areas that are under the arms right now or not sufficiently big enough for me to open them up with a knife. We are going to attempt to do oral antibiotics which I am placing you on 2 oh from because it so extensive. I am also giving you a Diflucan pill to help you not get a vaginal yeast infection on top of taking antibiotics. As we also discussed I think you need to inform Dr. Montez about these areas under your arm so he can maintain them. Should you have any concerns or if they should become overnight more fluctuant and draining heavily return to ER for recheck. Prescriptions: Cephalexin [Cephalexin 500 MG Tablet] 1 tab PO QID #40 tablet Clindamycin HCl [Cleocin 300 mg Capsule] 300 mg PO QID #40 capsule Fluconazole [Diflucan] 150 mg PO ONCE PRN #1 tablet PRN Reason: Hydrocodone/Acetaminophen [Eminence 7.5-325 mg Tablet] 1 tab PO Q6 #12 tablet Referrals: MITZY WAYNE MD [ACTIVE STAFF] - Follow up as needed
== END 2018-08-13 11:07 | disposition home or self-care (01) ==
LOC: ER 09:46
DX: L02.412 Cutaneous abscess of left axilla (principal); L02.411 Cutaneous abscess of right axilla; L73.9 Follicular disorder, unspecified; E11.9 Type 2 diabetes mellitus without complications; E66.01 Morbid (severe) obesity due to excess calories; I10 Essential (primary) hypertension
CPT/HCPCS: 87070; 87077; 87205; 99283

== ENCOUNTER → 2018-09-13 | Outpatient (CLI) | payer MEDICARE, MEDICAID ==
--- NOTE | 2018-09-13 10:30 | WOMENS IMAGING REPORT ---
EXAM DESCRIPTION: BILAT SCREENING MAMMO W/CAD COMPLETED DATE/TIME: 09/13/2018 9:29 am REASON FOR STUDY: BILATERAL SCREENING MAMMO /Z12.31 Z12.31 ENCNTR SCREEN MAMMOGRAM FOR MALIGNANT NE OPLASM OF MARCELA COMPARISON: None. TECHNIQUE: Standard craniocaudal and mediolateral oblique views of each breast recorded using [employer] l acquisition. LIMITATIONS: None. FINDINGS: Findings present which are benign by mammographic criteria. No suspicious masses, calcifi cations or architectural distortion. Pertinent benign findings: Stable benign coarse dense calcifications and scattered punctate breast pa renchymal and skin calcifications. Benign-appearing well-circumscribed low-density breast nodules. Read with the assistance of CAD. .[facility] - R2 Cenova Version 1.3 .[facility] - R2 Cenova Version 1.3 .[facility] - R2 Cenova Version 2.4 .[facility] [place] R2 Cenova Version 2.4 .[facility] - R2 Manager [employer]argo Version 9.2 Benign mammographic findings may include one or more of the following: Smooth masses, popcorn/rim/co arse calcifications, asymmetries, post-procedure changes, and lesions with long-standing stability. IMPRESSION: BENIGN MAMMOGRAPHIC FINDINGS. BIRADS 2 BREAST DENSITY: c. The breasts are heterogeneously dense, which may obscure small masses. BIRAD: 2 BENIGN FINDING(S) RECOMMENDATION: ROUTINE SCREENING Please continue bilateral screening mammography/tomosynthesis in September 2019 COMMENT: The patient has been notified of the results by letter per MQSA requirements. Additional no tification policies are in place for contacting patient with suspicious or incomplete findings. Quality ID #[id number]: The [employer] recommends an annual screening mammogram for women aged 40 years or over. This facility utilizes a reminder system to ensure that all patients receive reminder letters, and/or direct phone calls for appointments. This includes reminders for routine scr eening mammograms, diagnostic mammograms, or other Breast Imaging Interventions when appropriate. Th is patient will be placed in the appropriate reminder system. The [employer] (ACR) has developed recommendations for screening MRI of the breast s in certain patient populations, to be used in conjunction with mammography. Breast MRI surveillanc e may be appropriate for women with more than 20% lifetime risk of developing breast cancer as deter mined by genetic testing, significant family history of the disease, or history of mantle radiation f or Hodgkins Disease. ACR Practice Guidelines 2008. TECHNICAL DOCUMENTATION: FINDING NUMBER: (1) ASSESSMENT: (1) JOB ID: [id number] [email or web address]- All Rights Reserved Reading location - IP/workstation name: [email or web address]
== END ==
LOC: WI 08:35
PROVIDERS: ATTEND Surgery
DX: Z12.31 Encounter for screening mammogram for malignant neoplasm of breast (principal)
CPT/HCPCS: 77067

== ENCOUNTER → 2018-11-06 | Outpatient (CLI) | payer MEDICARE, MEDICAID ==
--- NOTE | 2018-11-06 12:23 | WOMENS IMAGING REPORT ---
EXAM DESCRIPTION: U/S ABDOMEN TOTAL COMPLETED DATE/TIME: 11/06/2018 7:38 am REASON FOR STUDY: R10.816 EPIGASTRIC ABDOMINAL TENDERNESS R10.816 EPIGASTRIC ABDOMINAL TENDERNESS R 10.815 PERIUMBILIC ABDOMINAL TENDERNESS COMPARISON: None TECHNIQUE: Dynamic and static grayscale images acquired of the abdomen and recorded on PACS. Additio nal selected color Doppler and spectral images recorded. Note: Exam does not meet criteria for a complete doppler/duplex scan LIMITATIONS: Study limited due to acoustical interference from fat or from air in the bowel. FINDINGS: PANCREAS: Obscured. LIVER: No masses. No dilated ducts. LIVER VASCULATURE: Normal directional flow of the main portal vein and hepatic veins. GALLBLADDER: Surgically absent. ULTRASOUND-DETECTED SEALS'S SIGN: Not applicable. INTRAHEPATIC DUCTS AND COMMON DUCT:CBD and intrahepatic ducts normal caliber. No filling defects. INFERIOR VENA CAVA: Normal flow. AORTA: No aneurysm. RIGHT KIDNEY: Normal size. Normal echogenicity. No solid or suspicious masses. No hydronephros is. No calcifications. LEFT KIDNEY: Normal size. Normal echogenicity. No solid or suspicious masses. No hydronephrosi s. No calcifications. SPLEEN:Normal size. No solid masses. PERITONEAL AND PLEURAL SPACES: No ascites or effusions. OTHER: No other significant finding. IMPRESSION: NO SIGNIFICANT FINDING IN THE VISUALIZED ABDOMEN. TECHNICAL DOCUMENTATION: JOB ID: [id number]- All Rights Reserved Reading location - IP/workstation name: [email or web address]
== END ==
LOC: WI 06:48
PROVIDERS: ATTEND Internal Medicine Gastroenterology
DX: R10.816 Epigastric abdominal tenderness (principal); R10.815 Periumbilic abdominal tenderness
CPT/HCPCS: 76700

== ENCOUNTER 2018-11-30 21:02 | Emergency (ER) | payer MEDICARE, MEDICAID ==
[2018-11-30 22:49] LABS: ABSOLUTE LYMPHOCYTES (AUTO) 2.6 10^3/uL (0.5-4.7); ABSOLUTE MONOCYTES (AUTO) 0.7 10^3/uL (0.1-1.4); ABSOLUTE NEUT (AUTO) 5.5 10^3/uL (1.7-8.2); BASOPHILS % (AUTO) 0.4 % (0-2); EOSINOPHILS % (AUTO) 0.5 % (0-6); HEMATOCRIT 32.4 % (36.0-47.0); HEMOGLOBIN 10.9 g/dL (12.0-15.5); LYMPHOCYTES % (AUTO) 29.2 % (13-45); MEAN CORPUSCULAR HEMOGLOBIN 28.8 pg (27.0-33.4); MEAN CORPUSCULAR HGB CONC 33.7 g/dL (32.0-36.0); MEAN CORPUSCULAR VOLUME 85 fl (80-97); MONOCYTES % (AUTO) 8.2 % (3-13); PLATELET COUNT 331 10^3/uL (150-450); RED CELL DISTRIBUTION WIDTH 14.9 % (11.5-14.0); SEGMENTED NEUTROPHILS % (AUTO) 61.7 % (42-78); TOTAL CELLS COUNTED % (AUTO) 100 %; WHITE BLOOD COUNT 8.9 10^3/uL (4.0-10.5)
[2018-11-30 23:05] LABS: ANION GAP 9 (5-19); BLOOD UREA NITROGEN 16 mg/dL (7-20); CALCIUM 10.3 mg/dL (8.4-10.2); CARBON DIOXIDE 28 mmol/L (22-30); CHLORIDE 104 mmol/L (98-107); GLUCOSE 114 mg/dL (75-110); POTASSIUM 4.2 mmol/L (3.6-5.0); SODIUM 140.9 mmol/L (137-145)
[2018-12-01] MEDS ORDERED: METOCLOPRAMIDE HCL 10 MG TABLET PO ONE (00:04)
--- NOTE | 2018-12-01 00:09 | ER Document Report ---
ED General - General Chief Complaint: Headache >24 hrs old Stated Complaint: HEADACHE Time Seen by Provider: 11/30/18 22:05 Primary Care Provider: HAIM HARPER MD [Primary Care Provider] - Follow up as needed Notes: Patient is a 63-year-old female with a past medical history of bipolar disorder, hypertension, presents with a multitude of complaints. It is quite difficult to assess actually what prompted the patient to come to the emergency department tonight. She states that she has an appointment with her primary care doctor but did not want to wait until then stating "I need to make sure everything was okay tonight". She states that she has had chronic headaches for at least 2-3 months that come and go. These are global, throbbing, aching headaches. Nothing seems to improve or worsen these headaches no other frequency. She believes that her symptoms are attributed to multiple new medications that were started by her primary care doctor during that time. She also complains of sinus pressure, swollen glands, body aches as well as multiple additional concerns. Denies fever, focal weakness, numbness or confusion. TRAVEL OUTSIDE OF THE [place] IN LAST 30 DAYS: No - Related Data Allergies/Adverse Reactions: No Known Allergies Allergy (Verified 11/30/18 21:05) Past Medical History - General Information source: Patient - Social History Smoking Status: Former Smoker Frequency of alcohol use: None Drug Abuse: None Lives with: Family Family History: Reviewed & Not Pertinent, Other Patient has suicidal ideation: No Patient has homicidal ideation: No - Past Medical History Cardiac Medical History: Reports: Hx Hypertension Endocrine Medical History: Reports: Hx Diabetes Mellitus Type 2, Hx Hypothyr oidism Renal/ Medical History: Denies: Hx Peritoneal Dialysis GI Medical History: Reports: Hx Hiatal Hernia Past Surgical History: Reports: Hx Cholecystectomy Review of Systems - Review of Systems Notes: Constitutional: Negative for fever. HENT: Positive for sore throat, lymphadenopathy Eyes: Negative for visual changes. Cardiovascular: Negative for chest pain. Respiratory: Negative for shortness of breath. Gastrointestinal: Negative for abdominal pain, vomiting or diarrhea. Genitourinary: Negative for dysuria. Musculoskeletal: Negative for back pain. Skin: Negative for rash. Neurological: Positive for chronic headaches 10 point ROS negative except as marked above and in HPI. Physical Exam - Vital signs Vitals: Temp Pulse Resp BP Pulse Ox 98.0 F 81 18 175/98 H 98 11/30/18 21:34 11/30/18 21:34 11/30/18 21:34 11/30/18 21:34 11/30/18 21:34 Interpretation: Hypertensive Notes: PHYSICAL EXAMINATION: GENERAL: Well-appearing, well-nourished and in no acute distress. HEAD: Atraumatic, normocephalic. EYES: Pupils equal round and reactive to light, extraocular movements intact, sclera anicteric, conjunctiva are normal. ENT: nares patent, oropharynx clear without exudates. Moist mucous membranes. NECK: Normal range of motion, supple without lymphadenopathy LUNGS: Breath sounds clear to auscultation bilaterally and equal. No wheezes rales or rhonchi. HEART: Regular rate and rhythm without murmurs ABDOMEN: Soft, nontender, normoactive bowel sounds. No guarding, no rebound. No masses appreciated. EXTREMITIES: Normal range of motion, no pitting or edema. No cyanosis. NEUROLOGICAL: No focal neurological deficits. Moves all extremities spontaneously and on command. PSYCH: Normal mood, normal affect. SKIN: Warm, Dry, normal turgor, no rashes or lesions noted. Course - Re-evaluation Re-evalutation: 12/01/18 00:04 Patient presents with multiple vague complaints that did not appear to be concerning for any acute life-threatening pathology. Vitals are within normal limits at triage and at time of discharge. Physical examination is unremarkable. Patient has tolerated oral intake without difficulty. Patient was not noted to be in distress at any point during their ER visit. At this time, based on the reassuring evaluation, I do not suspect an acute MS, pulmonary embolus, aortic dissection, acute intra-abdominal pathology, stroke, or sepsis.Will discharge with return precautions and follow-up recommendations. Verbal discharge instructions given a the bedside and opportunity for questions given. Medication warnings reviewed. Patient is in agreement with this plan and has verbalized understanding of return precautions and the need for primary care follow-up in the next 24-72 hours. - Vital Signs Vital signs: Temp Pulse Resp BP Pulse Ox 97.9 F 75 18 126/93 H 99 12/01/18 00:17 12/01/18 00:17 12/01/18 00:17 12/01/18 00:17 12/01/18 00:17 - Laboratory Result Diagrams: 11/30/18 22:39 11/30/18 22:39 Laboratory results interpreted by me: 11/30/18 11/30/18 22:39 22:39 Hgb 10.9 L Hct 32.4 L RDW 14.9 H Glucose 114 H Calcium 10.3 H Discharge - Discharge Clinical Impression: Multiple complaints, Essential hypertension Chronic headaches Qualifiers: Headache type: unspecified Intractability: not intractable Qualified Code(s): R51 - Headache Condition: Good Disposition: HOME, SELF-CARE Additional Instructions: Please return to the emergency room immediately if you experience any concerning symptoms including high fevers, severe headache, chest pain, difficulty breathing, abdominal pain, slurred speech, numbness or weakness in your arms or legs, or any other symptom that concerns you. Prescriptions: Metoclopramide HCl [Reglan 10 mg Tablet] 1 - 2 tab PO ASDIR PRN #25 tablet PRN Reason: Referrals: HAIM HARPER MD [Primary Care Provider] - Follow up as needed
[2018-12-01 00:19] VITALS: BP 126/93
== END 2018-12-01 00:18 | disposition home or self-care (01) ==
LOC: ER 21:02
DX: R51 Headache (principal); I10 Essential (primary) hypertension; E11.9 Type 2 diabetes mellitus without complications; E03.9 Hypothyroidism, unspecified; Z90.49 Acquired absence of other specified parts of digestive tract
CPT/HCPCS: 99284; 36415; 85025; 80048; A9270

== ENCOUNTER 2019-01-18 09:46 | Emergency (ER) | payer MEDICARE, MEDICAID ==
--- NOTE | 2019-01-18 10:23 | ER Document Report ---
ED Medical Screen (RME) - General Chief Complaint: Headache Stated Complaint: HEADACHE Time Seen by Provider: 01/18/19 10:22 Primary Care Provider: HAIM HARPER MD [Primary Care Provider] - Follow up as needed Mode of Arrival: Ambulatory Information source: Patient Notes: 63-year-old female presents to ED for a headache that is all around her head and then sometimes just in the front of her head. She states she said she has been to the emergency room for this headache and been to Dr. Harper and she needs to have a headache and nothing is helping. She is afraid of the pelvis there given she is for a day going to make her psychotic or bipolar anxiety or something. She states they are not helping with her headache. Patient is alert oriented respirations regular and unlabored speaks in full sentences walks with a even steady gait. I have greeted and performed a rapid initial assessment of this patient. A comprehensive ED assessment and evaluation of the patient, analysis of test results and completion of medical decision making process will be conducted by an additional ED providers. TRAVEL OUTSIDE OF THE [place] IN LAST 30 DAYS: No - Related Data Allergies/Adverse Reactions: No Known Allergies Allergy (Verified 01/18/19 09:47) Past Medical History - Social History Chew tobacco use (# tins/day): No Frequency of alcohol use: None Drug Abuse: None - Past Medical History Cardiac Medical History: Reports: Hx Hypertension Endocrine Medical History: Reports: Hx Diabetes Mellitus Type 2, Hx Hypothyroidism Renal/ Medical History: Denies: Hx Peritoneal Dialysis GI Medical History: Reports: Hx Hiatal Hernia Past Surgical History: Reports: Hx Cholecystectomy - Immunizations History of Influenza Vaccine for 07/2017 - 12/2017 Season: No Physical Exam - Vital signs Vitals: Temp Pulse Resp BP Pulse Ox 98.1 F 70 22 H 151/69 H 97 01/18/19 10:05 01/18/19 10:05 01/18/19 10:05 01/18/19 10:05 01/18/19 10:05 Course - Vital Signs Vital signs: Temp Pulse Resp BP Pulse Ox 98.1 F 70 22 H 151/69 H 97 01/18/19 10:05 01/18/19 10:05 01/18/19 10:05 01/18/19 10:05 01/18/19 10:05 Doctor's Discharge - Discharge Referrals: HAIM HARPER MD [Primary Care Provider] - Follow up as needed
--- NOTE | 2019-01-18 11:25 | RADIOLOGY REPORT (SQ) ---
EXAM DESCRIPTION: CT HEAD WITHOUT COMPLETED DATE/TIME: 01/18/2019 10:57 am REASON FOR STUDY: Headache times a month and a half intermittent med COMPARISON: None. TECHNIQUE: Axial images acquired through the brain without intravenous contrast. Images reviewed wi th bone, brain and subdural windows. Additional sagittal and coronal reconstructions were generated. Images stored on PACS. All CT scanners at this facility use dose modulation, iterative reconstruction, and/or weight based d osing when appropriate to reduce radiation dose to as low as reasonably achievable (ALARA). [facility]: Dose Right [facility]: CareDose [facility]: Dose Right [facility]: Teradose 4D [facility]: CoastTec RADIATION DOSE: CT Rad equipment meets quality standard of care and radiation dose reduction techniq ues were employed. CTDIvol: 53.2 mGy. DLP: 1044 mGy-cm. mGy. LIMITATIONS: None. FINDINGS: VENTRICLES: Normal size and contour. CEREBRUM: No masses. No hemorrhage. No midline shift. No evidence for acute infarction. Normal gra y/white matter differentiation. No areas of low density in the white matter. CEREBELLUM: No masses. No hemorrhage. No alteration of density. No evidence for acute infarction. EXTRAAXIAL SPACES: No fluid collections. Small calcified meningiomata about the bilateral frontal lo bes. ORBITS AND GLOBE: No intra- or extraconal masses. Normal contour of globe without masses. CALVARIUM: No fracture. PARANASAL SINUSES: No fluid or mucosal thickening. SOFT TISSUES: No mass or hematoma. OTHER: No other significant finding. IMPRESSION: No acute intracranial pathology. No noncontrast CT findings to explain headache. There are small calcified meningiomata about the bilateral frontal lobes, without mass effect. EVIDENCE OF ACUTE STROKE: NO. COMMENT: Quality ID # [id number]: Final reports with documentation of one or more dose reduction techniques (e.g., Automated exposure control, adjustment of the mA and/or kV according to patient size, use of iterative reconstruction technique) TECHNICAL DOCUMENTATION: JOB ID: [id number] [employer]- All Rights Reserved Reading location - IP/workstation name: [email or web address]
[2019-01-18] MEDS ORDERED: DIPHENHYDRAMINE HCL 50 MG/ML VIAL IV ONE (11:52)
[2019-01-18] MEDS ORDERED: NORMAL SALINE 1000 ML 1,000 ML IV ONE (11:52)
[2019-01-18] MEDS ORDERED: METOCLOPRAMIDE HCL INJ/PF 10 MG/2 ML SDV IV ONE (11:52)
[2019-01-18] MEDS ORDERED: KETOROLAC TROMETHAMINE INJ/PF 30 MG/1 ML SDV IV ONE (11:52)
[2019-01-18] MEDS ORDERED: KETOROLAC TROMETHAMINE INJ/PF 30 MG/1 ML SDV IM ONE (12:13)
--- NOTE | 2019-01-18 12:19 | ER Document Report ---
ED Headache - General Chief Complaint: Headache Stated Complaint: HEADACHE Time Seen by Provider: 01/18/19 10:22 Primary Care Provider: HAIM HARPER MD [Primary Care Provider] - Follow up as needed Mode of Arrival: Ambulatory TRAVEL OUTSIDE OF THE [place] IN LAST 30 DAYS: No - HPI Notes: Patient is a 63-year-old female that presents to the emergency department for chief complaint of headache. Patient reports headache on most days since mid November. She states she has seen her primary care doctor and the emergency room as well as ENT for the h eadache. She has not seen neurology. She states it is bilateral frontal and achy in nature. The headache is intermittent but occurs most mornings. She denies any associated symptoms including vision changes, nausea, numbness, weakness, fevers and neck stiffness. She denies taking any medications at home for her symptoms. Past Medical History: GERD Past Surgical History: Reviewed in chart Social History: Denies tobacco and alcohol Family History: Reviewed and noncontributory for presenting illness Allergies: Reviewed, see documented allergy list. REVIEW OF SYSTEMS: CONSTITUTIONAL : No fever No chills No diaphoresis No recent illness EENT: No vision changes No congestion No sore throat CARDIOVASCULAR: No chest pain No palpitations RESPIRATORY: No shortness of breath No cough No difficulty breathing GASTROINTESTINAL: No abdominal pain No nausea No vomiting No diarrhea GENITOURINARY: No dysuria No hematuria No difficulty urinating MUSCULOSKELETAL: No back pain No leg pain No arm pain SKIN: No rashes No lesions LYMPHATIC: No swollen, enlarged glands. NEUROLOGICAL: No lightheadedness headache No weakness No paresthesias PSYCHIATRIC: No anxiety No depression PHYSICAL EXAMINATION: Vital signs reviewed, nursing noted reviewed. GENERAL: Well-appearing, well-nourished and in no acute distress. HEAD: Atraumatic, normocephalic. EYES: Eyes appear normal, extraocular movements intact, sclera anicteric, conjunctiva are normal. ENT: nares patent, oropharynx clear without exudates. Moist mucous membranes. NECK: Normal range of motion, supple without lymphadenopathy LUNGS: Breath sounds clear to auscultation bilaterally and equal. No wheezes rales or rhonchi. HEART: Regular rate and rhythm without murmurs ABDOMEN: Soft, nontender, normoactive bowel sounds. No rebound, guarding, or rigidity. No masses appreciated. EXTREMITIES: Nontender, good range of motion, no pitting or edema. NEUROLOGICAL: No focal neurological deficits. Moves all extremities spontaneously Motor and sensory grossly intact on exam. PSYCH: Normal mood, normal affect. SKIN: Warm, Dry, normal turgor, no rashes or lesions noted on exposed skin - Related Data Allergies/Adverse Reactions: No Known Allergies Allergy (Verified 01/18/19 09:47) Past Medical History - General Information source: Patient - Social History Smoking Status: Former Smoker Chew tobacco use (# tins/day): No Frequency of alcohol use: None Drug Abuse: None Family History: Reviewed & Not Pertinent, Other Patient has suicidal ideation: No Patient has homicidal ideation: No - Past Medical History Cardiac Medical History: Reports: Hx Hypertension Endocrine Medical History: Reports: Hx Diabetes Mellitus Type 2, Hx Hypothyroidism Renal/ Medical History: Denies: Hx Peritoneal Dialysis GI Medical History: Reports: Hx Hiatal Hernia Past Surgical History: Reports: Hx Cholecystectomy Physical Exam - Vital signs Vitals: Temp Pulse Resp BP Pulse Ox 98.1 F 70 22 H 151/69 H 97 01/18/19 10:05 01/18/19 10:05 01/18/19 10:05 01/18/19 10:05 01/18/19 10:05 Course - Re-evaluation Re-evalutation: 01/18/19 12:18 Vitals reviewed. Nursing notes reviewed. Patient is well-appearing and in no acute distress. She has not been taking any medications at home for her symptoms. She has seen ENT and her primary care doctor. Patient states she came here to get a CT scan of her head, her CT ordered in triage is normal. She has no focal neurologic deficits. Patient was given Toradol for her headache. She was encouraged to take Tylenol or ibuprofen at home. She was counseled on staying well-hydrated. She was told to talk to her PCP about referral to neurology for her persistent headaches. Patient is in agreement with this plan of care and stable at discharge. Head CT 01/18/19 10:22 IMPRESSION: No acute intracranial pathology. No noncontrast CT findings to explain headache. There are small calcified meningiomata about the bilateral frontal lobes, without mass effect. EVIDENCE OF ACUTE STROKE: NO. - Vital Signs Vital signs: Temp Pulse Resp BP Pulse Ox 98.1 F 70 22 H 151/69 H 97 01/18/19 10:05 01/18/19 10:05 01/18/19 10:05 01/18/19 10:05 01/18/19 10:05 Discharge - Discharge Clinical Impression: Cephalgia Qualifiers: Headache type: unspecified Headache chronicity pattern: chronic headache Intractability: not intractable Qualified Code(s): R51 - Headache Condition: Stable Disposition: HOME, SELF-CARE Instructions: Headache ([facility]) Additional Instructions: Please return to the emergency department if you have any worsening, or concern of your symptoms. Please return to the emergency department if you develop chest pain, difficulty breathing, severe abdominal pain, or ongoing vomiting. Please follow-up with your primary care physician in 2-3 days and any other recommended physicians. If prescribed, take all medications as directed. If you have any questions or concerns do not hesitate to return the emergency department for evaluation. Stay well-hydrated at home Take ibuprofen and Tylenol for your headache Referrals: HAIM HARPER MD [Primary Care Provider] - Follow up in 3-5 days
[2019-01-18 12:24] VITALS: BP 147/58
== END 2019-01-18 12:43 | disposition home or self-care (01) ==
LOC: ER 09:46
DX: R51 Headache (principal); Z87.891 Personal history of nicotine dependence; I10 Essential (primary) hypertension; E11.9 Type 2 diabetes mellitus without complications
CPT/HCPCS: 99283; 96372; 70450; J1885

== ENCOUNTER → 2019-03-12 | Outpatient (CLI) | payer MEDICARE, MEDICAID ==
--- NOTE | 2019-03-12 13:40 | RADIOLOGY REPORT (SQ) ---
EXAM DESCRIPTION: MRI HEAD WITHOUT COMPLETED DATE/TIME: 03/12/2019 1:00 pm REASON FOR STUDY: R51 HEADACHE R51 HEADACHE COMPARISON: CT dated 01/18/2019. TECHNIQUE: Multiplanar imaging includes non-contrasted T1, T2, FLAIR, and Diffusion with ADC map seq uences. Images stored on PACS. LIMITATIONS: None. FINDINGS: ANATOMY: No anomalies. Normal vascular flow voids. Pituitary fossa normal. CSF SPACES: Normal in size and contour. No hemorrhage. CEREBRUM: A few high-signal intensity lesions scattered throughout the white matter on FLAIR imaging with distribution suggesting chronic micro-vascular ischemic change. Sulci and gyri normal in size a nd contour. No evidence of hemorrhage, mass or extraaxial fluid collection. POSTERIOR FOSSA: No signal alteration. No hemorrhage. No edema, masses or mass effect. Internal cheryl tory canals, cerebello-pontine angles, mastoids normal. DIFFUSION: Negative for acute or sub-acute infarction. ORBITS: No masses. Globes normal. PARANASAL SINUSES: No fluid levels. Mucosa normal. OTHER: No other significant finding. IMPRESSION: MINIMAL MICROVASCULAR ISCHEMIC CHANGE. OTHERWISE NORMAL STUDY. EVIDENCE OF ACUTE STROKE: NO. TECHNICAL DOCUMENTATION: JOB ID: [id number] [employer]- All Rights Reserved Reading location - IP/workstation name: [email or web address]
== END ==
LOC: RAD 12:15
PROVIDERS: ATTEND Internal Medicine
DX: R51 Headache (principal)
CPT/HCPCS: 70551

== ENCOUNTER → 2019-03-14 | Day surgery (SDC) | payer MEDICARE, MEDICAID ==
[~2019-03-14] MED LIST: LIDOCAINE 1% INJ-PF (10 MG/ML) 30 ML SDV ONE
--- NOTE | 2019-03-14 15:09 | RADIOLOGY REPORT (SQ) ---
EXAM DESCRIPTION: U/S BIOPSY THYROID COMPLETED DATE/TIME: 03/14/2019 2:43 pm REASON FOR STUDY: E04.2 NONTOXIC MULTINODULAR GOITER E04.2 NONTOXIC MULTINODULAR GOITER COMPARISON: None. TECHNIQUE: The procedure was discussed with the patient and written informed consent obtained. A ti meout was performed to confirm the procedure and patient's identity. The skin of the neck was preppe d and draped in sterile fashion and 1% lidocaine administered for local anesthesia. Under sonographic guidance, fine needle aspiration biopsy was per formed of the mass in the right and left lobe of the thyroid. 6 separate aspirations were performed. Hemostasis was obtained with direct manual compression. Ther e were no immediate complications. LIMITATIONS: None. FINDINGS: PATHOLOGY: Pending. IMPRESSION: ULTRASOUND-GUIDED BIOPSY PERFORMED OF A MASS IN THE RIGHT AND LEFT LOBE OF THE THYROID. PATHOLOGY PENDING AT THE TIME OF DICTATION. COMMENT: Patient medication list reviewed: Yes- Quality ID# [id number]:Eligible professional attests to doc umenting in the medical record they obtained, updated, or reviewed the patient's current medications. TECHNICAL DOCUMENTATION: JOB ID: [id number] [employer]- All Rights Reserved Reading location - IP/workstation name: [email or web address]
== END ==
LOC: RAD 11:59
PROVIDERS: ATTEND Otolaryngology
DX: E04.2 Nontoxic multinodular goiter (principal)
CPT/HCPCS: 88173 ×2; 60100; J3490

== ENCOUNTER 2019-05-17 19:20 | Emergency (ER) | payer MEDICARE, MEDICAID ==
[2019-05-17 22:36] VITALS: BP 131/57
--- NOTE | 2019-05-17 22:39 | ER Document Report ---
ED Skin Rash/Insect Bite/Abscs - General Chief Complaint: Abscess Stated Complaint: SKIN ISSUE Time Seen by Provider: 05/17/19 22:14 Primary Care Provider: HAIM HARPER MD [Primary Care Provider] - Follow up as needed Mode of Arrival: Ambulatory Information source: Patient Notes: 64-year-old female presented to ED for complaint of chronic abscesses to bilater al axilla and groin area. She she states that her doctor never wants to look at these abscesses and help her with this. She states she she also told him about her ear pain and she did not treat the laser. She came to the emergency room to find out why she is having these abscesses. She also wants to be sure that one does not need to be opened and drained as she has multiple. TRAVEL OUTSIDE OF THE [place] IN LAST 30 DAYS: No - HPI Patient complains to provider of: Tender/swollen area - Bilateral axilla and bilateral groin Onset: Other - Chronic Quality of pain: Pressure, Sharp Severity: Moderate Pain Level: 3 Skin Character: Abscess Quality of rash: Painful Identify cause: No - Hidradenitis Exacerbated by: Movement, Walking Relieved by: Denies Similar symptoms previously: Yes Recently seen / treated by doctor: No - Related Data Allergies/Adverse Reactions: No Known Allergies Allergy (Verified 01/18/19 09:47) Past Medical History - General Information source: Patient - Social History Smoking Status: Former Smoker Frequency of alcohol use: None Drug Abuse: None Lives with: Family Family History: Reviewed & Not Pertinent, Other Patient has suicidal ideation: No Patient has homicidal ideation: No - Past Medical History Cardiac Medical History: Reports: Hx Hypertension Pulmonary Medical History: Reports: None EENT Medical History: Reports: None Neurological Medical History: Reports: Hx Migraine Endocrine Medical History: Reports: Hx Diabetes Mellitus Type 2, Hx Hypothyroidism Renal/ Medical History: Reports: None Malignancy Medical History: Reports: None GI Medical History: Reports: Hx Hiatal Hernia Musculoskeletal Medical History: Reports None Skin Medical History: Reports Other - Hydradenitis Psychiatric Medical History: Reports: None Traumatic Medical History: Reports: None Infectious Medical History: Reports: None Past Surgical History: Reports: Hx Cholecystectomy Review of Systems - Review of Systems Constitutional: No symptoms reported EENT: No symptoms reported Cardiovascular: No symptoms reported Respiratory: No symptoms reported Gastrointestinal: No symptoms reported Genitourinary: No symptoms reported Female Genitourinary: No symptoms reported Musculoskeletal: No symptoms reported Skin: No symptoms reported, Other - Hydradenitis bilateral axilla and bilateral groin. She states she is has multiple abscesses frequently. Hematologic/Lymphatic: No symptoms reported Neurological/Psychological: No symptoms reported -: Yes All other systems reviewed and negative Physical Exam - Vital signs Vitals: Temp Pulse Resp BP Pulse Ox 98.0 F 71 18 138/67 H 99 05/17/19 19:31 05/17/19 19:31 05/17/19 19:31 05/17/19 19:31 05/17/19 19:31 Interpretation: Normal - General General appearance: Appears well, Alert - HEENT Head: Normocephalic, Atraumatic Eyes: Normal Pupils: PERRL - Respiratory Respiratory status: No respiratory distress Chest status: Nontender Breath sounds: Normal Chest palpation: Normal - Cardiovascular Rhythm: Regular Heart sounds: Normal auscultation Murmur: No - Abdominal Inspection: Normal Distension: No distension Bowel sounds: Normal Tenderness: Nontender Organomegaly: No organomegaly - Back Back: Normal, Nontender - Extremities General upper extremity: Normal inspection, Nontender, Normal color, Normal ROM, Normal temperature General lower extremity: Normal inspection, Nontender, Normal color, Normal ROM, Normal temperature, Normal weight bearing. No: India's sign - Neurological Neuro grossly intact: Yes Cognition: Normal Orientation: AAOx4 Antonio Coma Scale Eye Opening: Spontaneous Antonio Coma Scale Verbal: Oriented Antonio Coma Scale Motor: Obeys Commands Antonio Coma Scale Total: 15 Speech: Normal Motor strength normal: LUE, RUE, LLE, RLE Sensory: Normal - Psychological Associated symptoms: Normal affect, Normal mood - Skin Skin Temperature: Warm Skin Moisture: Dry Skin Color: Normal Skin irregularity: Abscess - Right axilla Location of irregularity: Other - Complains of "boils "under both arms and in both groin areas. There is one abscess in the right axilla I do not see any active abscesses at this time Irregularity with: Swelling, Tenderness Course - Vital Signs Vital signs: Temp Pulse Resp BP Pulse Ox 98.0 F 76 18 131/57 H 99 05/17/19 19:31 05/17/19 22:35 05/17/19 19:31 05/17/19 22:35 05/17/19 19:31 Discharge - Discharge Clinical Impression: Hidradenitis suppurativa of right axilla Condition: Stable Disposition: HOME, SELF-CARE Additional Instructions: You were seen tonight for "abscesses" under your arms and in your groin area. You have been diagnosed with hydradenitis superlative in the past and I have given you a teaching sheet concerning this from up-to-date so that this can help you with understanding of your condition. Doxycycline Doxycycline (Vibramycin, Doryx) is an antibiotic of the tetracycline family. This type of drug is useful for infections of the respiratory tract and genital tract, and is sometimes used for intestinal infections. Unlike most tetracyclines, doxycycline can be taken with food. It is longer acting, and (usually) less prone to side effects than regular tetracycline. Tetracycline antibiotics can stain immature teeth and SHOULD NOT BE TAKEN BY CHILDREN, NURSING MOTHERS, OR WOMEN. Tetracyclines can make you more prone to sunburn. Abdominal cramping, nausea, and diarrhea are occasional side effects. Women may experience vaginal yeast infections. Call the doctor at once if you develop hives, itching, shortness of breath, or lightheadedness. Acetaminophen Acetaminophen may be taken for pain relief or fever control. It's much safe r than aspirin, offering a wider range of "safe" dosages. It is safe during . Some brand names are Tylenol, Panadol, Datril, Anacin 3, Tempra, and Liquiprin. Acetaminophen can be repeated every four hours. The following are maximum recommended dosages: WEIGHT Dose Drops Elixir Chewable(80mg) (LBS.) drprs=droppers tsp=teaspoon 6 40 mg .4 ml (1/2) 6-11 80 mg .8 ml (full) 1/2 tsp 1 tab 12-16 120 mg 1 1/2 drprs 3/4 tsp 1 1/2 tabs 17-23 160 mg 2 drprs 1 tsp 2 tabs 24-30 240 mg 3 drprs 1 1/2 tsp 3 tabs 30-35 320 mg 2 tsp 4 tabs 36-41 360 mg 2 1/4 tsp 4 1/2 tabs 42-47 400 mg 2 1/2 tsp 5 tabs 48-53 480 mg 3 tsp 6 tabs 54-59 520 mg 3 1/4 tsp 6 1/2 tabs 60-64 560 mg 3 1/2 tsp 7 tabs 65-70 600 mg 3 3/4 tsp 7 1/2 tabs 71-76 640 mg 4 tsp 8 tabs 77-82 720 mg 4 1/2 tsp 9 tabs 83-88 800 mg 5 tsp 10 tabs >89 pounds or adults 650 mg to 900 mg Acetaminophen can be repeated every four hours. Maximum daily dose not to exceed 4000 mg. These maximum recommended dosages are slightly higher than the dosages written on the product container, but these dosages are very safe and well below the toxic dosage for acetaminophen. FOLLOW-UP CARE: Most simple abscesses will not require a follow up visit. If you had packing placed in the abscess, remove it as instructed by the physician. If you have been referred to a physician for follow-up care, call the physicians office for an appointment as you were instructed or within the next two days. If you experience worsening or a significant change in your symptoms, return to the Emergency Department at any time for re-evaluation. Prescriptions: Doxycycline Hyclate 100 mg PO BID #20 capsule Referrals: HAIM HARPER MD [Primary Care Provider] - Follow up as needed
[2019-05-17] MEDS ORDERED: DOXYCYCLINE HYCLATE 100 MG TABLET PO ONE (22:45)
== END 2019-05-17 23:01 | disposition home or self-care (01) ==
LOC: ER 19:20
DX: L73.2 Hidradenitis suppurativa (principal); L02.411 Cutaneous abscess of right axilla; E11.9 Type 2 diabetes mellitus without complications; Z87.891 Personal history of nicotine dependence
CPT/HCPCS: 99283; A9270

== ENCOUNTER → 2019-06-19 | Outpatient (CLI) | payer MEDICARE, MEDICAID ==
[2019-06-19 15:04] LABS: ABSOLUTE LYMPHOCYTES (AUTO) 1.6 10^3/uL (0.5-4.7); ABSOLUTE MONOCYTES (AUTO) 0.6 10^3/uL (0.1-1.4); ABSOLUTE NEUT (AUTO) 3.4 10^3/uL (1.7-8.2); BASOPHILS % (AUTO) 0.6 % (0-2); EOSINOPHILS % (AUTO) 0.7 % (0-6); HEMATOCRIT 32.9 % (36.0-47.0); HEMOGLOBIN 10.9 g/dL (12.0-15.5); LYMPHOCYTES % (AUTO) 28.1 % (13-45); MEAN CORPUSCULAR HEMOGLOBIN 27.6 pg (27.0-33.4); MEAN CORPUSCULAR HGB CONC 33.1 g/dL (32.0-36.0); MEAN CORPUSCULAR VOLUME 84 fl (80-97); MONOCYTES % (AUTO) 11.2 % (3-13); PLATELET COUNT 278 10^3/uL (150-450); RED BLOOD COUNT 3.94 10^6/uL (3.72-5.28); RED CELL DISTRIBUTION WIDTH 15.4 % (11.5-14.0); SEGMENTED NEUTROPHILS % (AUTO) 59.4 % (42-78); TOTAL CELLS COUNTED % (AUTO) 100 %; WHITE BLOOD COUNT 5.8 10^3/uL (4.0-10.5)
[2019-06-19 15:23] LABS: ALKALINE PHOSPHATASE 130 U/L (38-126); ANION GAP 9 (5-19); ASPARTATE AMINO TRANSFERASE 21 U/L (14-36); BILIRUBIN,DIRECT 0.2 mg/dL (0.0-0.4); BILIRUBIN,TOTAL 0.4 mg/dL (0.2-1.3); BLOOD UREA NITROGEN 12 mg/dL (7-20); CALCIUM 9.8 mg/dL (8.4-10.2); CARBON DIOXIDE 28 mmol/L (22-30); CHLORIDE 100 mmol/L (98-107); GLUCOSE 136 mg/dL (75-110); POTASSIUM 3.8 mmol/L (3.6-5.0)
== END ==
LOC: LAB 14:56
PROVIDERS: ATTEND Internal Medicine Gastroenterology
DX: R10.13 Epigastric pain (principal)
CPT/HCPCS: 36415; 80048; 80076; 83690; 85025

== ENCOUNTER → 2019-06-22 | Outpatient (CLI) | payer MEDICARE, MEDICAID ==
--- NOTE | 2019-06-22 08:07 | WOMENS IMAGING REPORT ---
EXAM DESCRIPTION: U/S ABDOMEN TOTAL COMPLETED DATE/TIME: 06/22/2019 7:47 am REASON FOR STUDY: R10.13 EPIGASTRIC PAIN R10.13 EPIGASTRIC PAIN COMPARISON: None. TECHNIQUE: Dynamic and static grayscale images acquired of the abdomen and recorded on PACS. Additio nal selected color Doppler and spectral images recorded. Note: Study does not meet criteria for complete doppler/duplex scan LIMITATIONS: Body habitus. FINDINGS: PANCREAS: Visualized portion of the pancreas are normal in appearance. LIVER: No focal masses. Liver is measured 17.4 cm in greatest diameter. Mild increased echogenicity consistent with fatty infiltration. LIVER VASCULATURE: Normal directional flow of the main portal vein and hepatic veins. GALLBLADDER: Surgically absent. ULTRASOUND-DETECTED SEALS'S SIGN: Negative. INTRAHEPATIC DUCTS AND COMMON DUCT: CBD and intrahepatic ducts normal caliber. No filling defects. INFERIOR VENA CAVA: Obscured by overlying bowel gas. AORTA: Obscured by overlying bowel gas. RIGHT KIDNEY: Normal size. Normal echogenicity. No solid or suspicious masses. No hydronephros is. No calcifications. LEFT KIDNEY: Normal size. Normal echogenicity. No solid or suspicious masses. No hydronephrosi s. No calcifications. SPLEEN: Normal size. No solid masses. PERITONEAL AND PLEURAL SPACES: No ascites or effusions. OTHER: No other significant finding. IMPRESSION: The liver is mildly echogenic. Suspect fatty infiltration. Prior cholecystectomy. No other significant findings. TECHNICAL DOCUMENTATION: JOB ID: [id number] [employer]- All Rights Reserved Reading location - IP/workstation name: [email or web address]
== END ==
LOC: WI 07:10
PROVIDERS: ATTEND Internal Medicine Gastroenterology
DX: K76.0 Fatty (change of) liver, not elsewhere classified (principal); R10.13 Epigastric pain
CPT/HCPCS: 76700

== ENCOUNTER → 2019-06-28 | Outpatient (CLI) | payer MEDICARE, MEDICAID ==
[2019-06-28 14:47] LABS: FERRITIN 85.7 ng/mL (11.1-264.0)
== END ==
LOC: LAB 13:35
PROVIDERS: ATTEND Internal Medicine Gastroenterology
DX: D53.9 Nutritional anemia, unspecified (principal)
CPT/HCPCS: 36415; 82607; 82728; 82746

== ENCOUNTER → 2019-08-20 | Outpatient (CLI) | payer MEDICARE, MEDICAID ==
--- NOTE | 2019-08-20 10:59 | RADIOLOGY REPORT (SQ) ---
EXAM DESCRIPTION: KNEE BILAT AP UPRIGHT COMPLETED DATE/TIME: 08/20/2019 10:48 am REASON FOR STUDY: M17.0 BILATERAL PRIMARY OSTEOARTHRITIS OF KNEE M17.0 BILATERAL PRIMARY OSTEOARTHR ITIS OF KNEE COMPARISON: None. NUMBER OF VIEWS: Two views. TECHNIQUE: AP standing bilateral knees. LIMITATIONS: None. FINDINGS: MINERALIZATION: Normal. RIGHT KNEE BONES: No acute fracture. No worrisome bone lesions. MEDIAL COMPARTMENT: Marginal osteophytes. Significant joint space narrowing. No chondrocalcinosis . LATERAL COMPARTMENT: Marginal osteophytes. No joint space narrowing. No chondrocalcinosis. LEFT KNEE BONES: No acute fracture. No worrisome bone lesions. MEDIAL COMPARTMENT: Marginal osteophytes. Significant joint space narrowing. No chondrocalcinosis . LATERAL COMPARTMENT: No significant osteophytes. No joint space narrowing. No chondrocalcinosis. IMPRESSION: Degenerative joint changes in both knees in the medial compartment predominantly. TECHNICAL DOCUMENTATION: JOB ID: [id number] [employer]- All Rights Reserved Reading location - IP/workstation name: [email or web address]
== END ==
LOC: RAD 10:17
PROVIDERS: ATTEND Internal Medicine
DX: M17.0 Bilateral primary osteoarthritis of knee (principal)
CPT/HCPCS: 73565

== ENCOUNTER → 2019-09-14 | Outpatient (CLI) | payer MEDICARE, MEDICAID ==
--- NOTE | 2019-09-14 14:25 | WOMENS IMAGING REPORT ---
EXAM DESCRIPTION: 3D SCREENING MAMMO BILAT COMPLETED DATE/TIME: 09/14/2019 10:16 am REASON FOR STUDY: Z12.31 ENCOUNTER FOR SCREENING MAMMOGRAM FOR MALIGNANT NEOPLASM OF BREAST Z12.31 ENCNTR SCREEN MAMMOGRAM FOR MALIGNANT NEOPLASM OF MARCELA COMPARISON: 2018 EXAM PARAMETERS: Standard craniocaudal and mediolateral oblique views of each breast recorded using digital acquisition and breast tomosynthesis. Read with the assistance of CAD. .[facility] - [employer] Version 9.2 LIMITATIONS: None. FINDINGS: Findings present which are benign by mammographic criteria. No suspicious masses, calcific ations or architectural distortion. Pertinent benign findings: Extensive bilateral calcifications stable. Benign mammographic findings may include one or more of the following: Smooth masses, popcorn/rim/coa rse calcifications, asymmetries, post-procedure changes, and lesions with long-standing stability. IMPRESSION: BENIGN MAMMOGRAPHIC FINDINGS. BIRADS 2 BREAST DENSITY: c. The breasts are heterogeneously dense, which may obscure small masses. BIRAD: ASSESSMENT: 2 BENIGN FINDING(S) RECOMMENDATION: ROUTINE SCREENING COMMENT: The patient has been notified of the results by letter per SA requirements. Additional no tification policies are in place for contacting patient with suspicious or incomplete findings. Quality ID #[id number]: The [employer] [place] [employer] recommends an annual screening mammogram for women aged 40 years or over. This facility utilizes a reminder system to ensure that all patients receive reminder letters, and/or direct phone calls for appointments. This includes reminders for routine scr eening mammograms, diagnostic mammograms, or other Breast Imaging Interventions when appropriate. Th is patient will be placed in the appropriate reminder system. TECHNICAL DOCUMENTATION: FINDING NUMBER: (1) ASSESSMENT: (1) JOB ID: [id number] [employer]- All Rights Reserved Reading location - IP/workstation name: [email or web address]
== END ==
LOC: WI 09:52
PROVIDERS: ATTEND Surgery
DX: Z12.31 Encounter for screening mammogram for malignant neoplasm of breast (principal)
CPT/HCPCS: 77063; 77067

== ENCOUNTER → 2020-04-16 | Day surgery (SDC) | payer MEDICARE, MEDICAID ==
--- NOTE | 2020-04-16 17:05 | RADIOLOGY REPORT (SQ) ---
EXAM DESCRIPTION: U/S BIOPSY THYROID IMAGES COMPLETED DATE/TIME: 04/16/2020 4:45 pm REASON FOR STUDY: E04.2 NONTOXIC MULTINODULAR GOITER E04.2 NONTOXIC MULTINODULAR GOITER COMPARISON: 03/14/2019 TECHNIQUE: The procedure was discussed with the patient and written informed consent obtained. A ti meout was performed to confirm the procedure and patient's identity. The skin of the neck was preppe d and draped in sterile fashion and 5 cc of 1% lidocaine was administered for local anesthesia. Unde r sonographic guidance, fine needle aspiration biopsy was performed of the previously biopsied isoech oic mass within the left lobe measuring 3.0 x 1.8 x 2.1 cm. This lesion was re- biopsy secondary to indeterminate prior pathology results. A total of 3 separate passes was performed. On-site patholog y deemed the specimens adequate. Hemostasis was achieved with manual compression. Attention was focused on biopsy of the right lobe. Additional 5 cc 1% lidocaine was utilized for loc al sedation. Fine needle aspiration biopsy was performed of the previously biopsied hypoechoic right -sided nodule measuring 2.4 x 1.3 x 2.0 cm. Biopsy was re- performed secondary to ordering provider' s request. A total of 3 passes was performed. On-site pathology deemed the specimens adequate. Hem ostasis was achieved with manual compression. Patient tolerated the procedure well. No immediate complications. LIMITATIONS: None. FINDINGS: PATHOLOGY: Pending. IMPRESSION: 1. ULTRASOUND-GUIDED BIOPSY PERFORMED OF THE 3.0 X 1.8 X 2.1 CM ISOECHOIC LEFT LOBE NOD ULE. PATHOLOGY PENDING. 2. ULTRASOUND BIOPSY PERFORMED OF THE 2.4 X 1.3 X 2.0 CM RIGHT THYROID LOBE NODULE. PATHOLOGY PENDI NG. COMMENT: Patient medication list reviewed: Yes- Quality ID# [id number]:Eligible professional attests to doc umenting in the medical record they obtained, updated, or reviewed the patient's current medications. TECHNICAL DOCUMENTATION: JOB ID: [id number] 2010 [employer]- All Rights Reserved Reading location - IP/workstation name: [email or web address]
== END ==
LOC: RAD 13:56
PROVIDERS: ATTEND Otolaryngology
DX: E04.2 Nontoxic multinodular goiter (principal)
CPT/HCPCS: 10005; 88173

== ENCOUNTER → 2020-06-26 | Outpatient (CLI) | payer MEDICARE, MEDICAID ==
--- NOTE | 2020-06-26 12:32 | RADIOLOGY REPORT (SQ) ---
EXAM DESCRIPTION: NM GASTRIC EMPTYING STUDY IMAGES COMPLETED DATE/TIME: 06/26/2020 11:23 am REASON FOR STUDY: R14.0 ABDOMINAL DISTENSION (GASEOUS) R14.0 ABDOMINAL DISTENSION (GASEOUS) COMPARISON: None. RADIONUCLIDE AND DOSE: 2 millicuries Tc-99m Sulfur Colloid. Egg salad sandwich The route of agent administration: Oral. TECHNIQUE: 1 minute serial static imaging performed at time of meal, 1 hour, 2 hours, 3 hours, and 4 hours as needed. Once stomach reaches 90% emptying, the test is complete. Image intensity values pl otted with respect to time with linear regression algorithm. LIMITATIONS: None. FINDINGS: Patient was observed for 3 hours. Immediate post meal serves as baseline. Gastric emptying at 30 minutes was 49.3%. Gastric emptying at 60 minutes was 70.7% Gastric emptying at 90 minutes was 82.7%. Gastric emptying at 120 minutes was 89.7%. Gastric emptying at 180 minutes was 98.6% Normal values: 60 minutes: 30-90% retained. If less than 30%, abnormally rapid emptying. If greater than 90%, delaye d gastric emptying. 120 minutes: <60% retained. If greater than 60%, delayed gastric emptying. 240 minutes: <10% retained. If greater than 10%, delayed gastric emptying. IMPRESSION: NORMAL GASTRIC EMPTYING. TECHNICAL DOCUMENTATION: JOB ID: [id number] 2010 [employer]- All Rights Reserved rev-02/17 Reading location - IP/workstation name: [email or web address]
== END ==
LOC: RAD 07:45
PROVIDERS: ATTEND Internal Medicine Gastroenterology
DX: R14.0 Abdominal distension (gaseous) (principal); K21.9 Gastro-esophageal reflux disease without esophagitis
CPT/HCPCS: 78264; A9541